=== PATIENT | female | born 1965 | race Caucasian/White ===

== ENCOUNTER 2025-01-11 08:18 | Inpatient (IN) | payer OTHER ==
[~2025-01-11] VITALS: Ht 175.3 cm; Wt 63.5 kg
[2025-01-11] MEDS ORDERED: VANCOMYCIN 1GM/200ML PM 200 ML IV ONE (08:45)
--- NOTE | 2025-01-11 08:47 | ECG ---
[facility] Test Date: 2025-01-11 Test Time: 08:29:44 Pat Name: TANISHA OLIVARES Department: Room: 0249 Gender: F Business System Manager: : 1965 Requested By: CAROLINE XIE Order Number: [id number] Reading MD: Arron Gonzales Measurements Intervals [place] Rate: 106 P: 80 [place]: 133 QRS: 73 QRSD: 93 T: 65 QT: 377 QTc: 501 Interpretive Statements Sinus tachycardia Anterior infarct, age indeterminate Electronically Signed On 01-12-2025 22:59:45 PDT by Arron Gonzales Please click the below link to view image of tracing.
--- NOTE | 2025-01-11 08:56 | ED.PDOC ---
GI ASSESSMENT HPI Comments 59 y/o F, BIBA, with PMHx of cancer presents to the ED for CC of n ausea/vomiting. EMS reports, patient is coming from home where she c/o hematemesis onset, today (01/11/25). Patient relays, she has x2 episodes of "bright red" emesis. Patient comments, that she was seen at [facility] for SS in November 2024 and was transferred to [facility] d/t vulvar cancer; patient was released from [facility] x1week ago following colectomy. Patient has colostomy in place and denies any changes in stool. Patient denies blood in stool, fatigue, weakness, dizziness, chills, or headache. No other symptoms or modifying factors present at this time. Chief Complaint: Nausea/Vomiting Time Seen by MD: 08:50 Reviewed Notes: Nurses Notes, Fruit I Farmworker Notes, Medications, Allergies Allergies: Coded Allergies: NO KNOWN ALLERGIES (Unverified , 01/11/25) Information Source: Patient, Emergency Med Personnel Mode of Arrival: EMS Timing: Days Duration: Since onset Prehospital treatment: None Quality: None Vomitus: Bright Red Bood Stool: Normal Severity: Moderate Recent: None Recent Hx of: None Pain Location: None Modifying Factors: Lying still Associated sign and symptoms: Hematemesis Past Medical History PAST MEDICAL HISTORY: Cancer Surgical History (Other): colostomy PHARMACY SERVICE ASSOCIATE History: Denies all PHARMACY SERVICE ASSOCIATE Hx Family History Family History: Unknown Social History Smoker: Non-Smoker Alcohol: Denies ETOH Use Drugs: Denies Drug Use Lives In: Home Constitutional: denies: chills, diaphoresis, fatigue, fever, malaise, sweats, weakness, others EENTM: denies: blurred vision, double vision, ear bleeding, ear discharge, ear drainage, ear pain, ear ringing, eye pain, eye redness, hearing loss, mouth pain, mouth swelling, nasal discharge, nose bleeding, nose congestion, nose pain, photophobia, tearing, throat pain, throat swelling, voice changes, others Respiratory: denies: cough, hemoptysis, orthopnea, SOB at rest, shortness of breath, SOB with excertion, stridor, wheezing, others Cardiovascular: denies: chest pain, dizzy spells, diaphoresis, Dyspnea on exertion, edema, irregular heart beat, left arm pain, lightheadedness, palpitations, PND, syncope, others Gastrointestinal: reports: hematemesis; denies: abdomen distended, abdominal pain, blood streaked bowels, constipated, diarrhea, dysphagia, difficulty swallowing, melena, nausea, poor appetite, poor fluid intake, rectal bleeding, rectal pain, vomiting, others Genitourinary: denies: abnormal vagina bleeding, burning, dyspareunia, dysuria, flank pain, frequency, hematuria, incontinence, pain, , vagina discharge, urgency, others Neurological: denies: dizziness, fainting, headache, left sided numbness, left sided weakness, numbness, paresthesia, pre-existing deficit, right sided numbness, right sided weakness, seizure, speech problems, tingling, tremors, weakness, others Musculoskeletal: denies: back pain, gout, joint pain, joint swelling, muscle pain, muscle stiffness, neck pain, others Integumetry: denies: bruises, change in color, change in hair/nails, dryness, laceration, lesions, lumps, rash, wounds, others Allergic/Immunocompromised: denies: Difficulty Healing, Frequent Infections, Hives, Itching, others Hematologic/Lymphatic: denies: anemia, blood clots, easy bleeding, easy bruising, swollen glands, others Endocrine: denies: excessive hunger, excessive sweating, excessive thirst, excessive urination, flushing, intolerance to cold, intolerance to heat, unexplained weight gain, unexplained weight loss, others Psychiatric: denies: anxiety, bipolar disorder, depression, hopeless, panic disorder, schizophrenia, sleepless, suicidal, others All Other Systems: Reviewed and Negative Physical Exam General Appearance: Moderate Distress HEENT: Normal ENT Inspection, Pharynx Normal, TMs Normal Neck: Full Range of Motion, Non-Tender, Normal, Normal Inspection Respiratory: Chest Non-Tender, Lungs Clear, No Accessory Muscle Use, No Respiratory Distress, Normal Breath Sounds Cardiovascular: No Edema, No JVD, No Murmur, No Gallop, Normal Peripheral Pulses, Regular Rate/Rhythm Breast Exam: Deferred Gastrointestinal: Other (Colostomy) Genitalia: Deferred Pelvic: Deferred Rectal: Deferred Extremities: Decreased range of motion (Bilateral lower extremity) Musculoskeletal : Apperance: Normal Neurologic: Alert, No Motor Deficits, No Sensory Deficits Cerebellar Function: NOT DONE Reflexes: NOT DONE Skin: Pallor Peripheral Pulses: 3+ Radial (R), 3+ Radial (L) Lymphatic: No Adenopathy Was a procedure done? Was a procedure done?: No GI differential Dx Differential Diagnosis: Constipation, Diverticular disease, Esophagitis, Gastritis/PUD, Gastroenteritis, GI hemorrhage X-Ray, Labs, Meds, VS Vital Signs Date Time Temp Pulse Resp B/P (MAP) Pulse Ox O2 Delivery O2 Flow Rate FiO2 01/11/25 14:00 70 16 123/63 (83) 95 01/11/25 12:00 97.9 71 16 138/68 (91) 95 97.9 01/11/25 10:31 92 20 95 Room Air* 0 21 01/11/25 10:30 95 Room Air* 0 21 01/11/25 10:00 83 16 131/83 (99) 95 01/11/25 08:50 97.8 98 16 132/80 (97) 95 97.8 01/11/25 08:29 106 01/11/25 08:22 98.3 110 16 138/84 97 98.3 Lab Test 01/11/25 10:00 01/11/25 08:54 Range/Units Urine Color Light-brown Yellow Urine Clarity Ex.turbid Clear Urine pH 5.5 5.0-9.0 Urine Specific [place] 1.019 1.001-1.035 Urine Protein 2+ H Negative Urine Ketones Negative Negative Urine Blood 2+ H Negative /uL Urine Nitrite Negative Negative Urine Bilirubin Negative Negative Urine Urobilinogen Normal Negative mg/dL Urine Leukocyte Esterase 3+ Negative /uL Urine RBC 76 0 - 4 /hpf Urine WBC Clumps Present None Seen /hpf Urine Microscopic WBC 502 H 0-5 /HPF Urine Squamous Epithelial Cells Few <5 /hpf Urine Bacteria Few H None Seen /hpf Urine Mucus Few None Seen Urine Glucose Normal Normal mg/dL White Blood Count 9.2 4.4-10.8 10^3/uL Red Blood Count 3.68 L 4.0-5.20 10^6/uL Hemoglobin 11.1 L 12.2-16.2 g/dL Hematocrit 34.1 L 36.0-46.0 % Mean Corpuscular Volume 92.7 80.0-100.0 fL Mean Corpuscular Hemoglobin 30.3 28.0-32.0 pg Mean Corpuscular Hemoglobin Concent 32.7 32.0-36.0 g/dL Red Cell Distribution Width 16.9 H 11.8-14.3 % Platelet Count 393 140-450 10^3/uL Mean Platelet Volume 7.1 6.9-10.8 fL Neutrophils (%) (Auto) 89.3 H 37.0-80.0 % Lymphocytes (%) (Auto) 4.5 L 10.0-50.0 % Monocytes (%) (Auto) 5.3 0.0-12.0 % Eosinophils (%) (Auto) 0.6 0.0-7.0 % Basophils (%) (Auto) 0.3 0.0-2.0 % Neutrophils # (Auto) 8.3 1.6-8.6 10 ^3/uL Lymphocytes # (Auto) 0.4 0.4-5.4 10 ^3/uL Monocytes # (Auto) 0.5 0-1.3 10 ^3/uL Eosinophils # (Auto) 0.1 0-0.8 10 ^3/uL Basophils # (Auto) 0 0-0.2 10 ^3/uL Nucleated Red Blood Cells 0.0 % Prothrombin Time 10.9 9.3-11.8 sec Prothrombin Time INR 1.03 0.9-1.15 Activated Partial Thromboplast Time 24.0 L 24.5-34.5 SEC Sodium Level 144 136-145 mmol/L Potassium Level 4.3 3.5-5.1 mmol/L Chloride Level 103 98-107 mmol/L Carbon Dioxide Level 30 20-31 mmol/L Anion Gap 11 5-15 Blood Urea Nitrogen 25 H 9-23 mg/dL Creatinine 1.13 H 0.550-1.02 mg/dL Glomerular Filtration Rate Calc 56 >90 mL/min BUN/Creatinine Ratio 22.1 H 10.0-20.0 Serum Glucose 142 H 74-106 mg/dL Lactic Acid Level 1.6 0.4-2.0 mmol/L Calcium Level 11.0 H 8.7-10.4 mg/dL Total Bilirubin 0.3 0.2-1.0 mg/dL Aspartate Amino Transferase (AST) 19 13-40 U/L Alanine Aminotransferase (ALT) 17 7-40 U/L Alkaline Phosphatase 76 46-116 U/L Total Protein 7.5 5.7-8.2 g/dL Albumin 4.7 3.2-4.8 g/dL Current Medications Medications (Trade) Dose Ordered Sig/Primitivo Route Start Time Stop Time Status Last Admin Sodium Chloride 1,000 ml @ 1,000 mls/hr Q1H ONCE IV 01/11/25 08:45 01/11/25 09:44 DC 01/11/25 09:47 Sodium Chloride 1,000 ml @ 150 mls/hr Q6H40M ONCE IV 01/11/25 08:45 01/11/25 15:24 DC 01/11/25 09:48 Vancomycin HCl 250 ml @ 166.667 mls/hr ONCE ONCE IV 01/11/25 09:00 01/11/25 10:29 DC 01/11/25 09:47 Cefepime HCl 50 ml @ 50 mls/hr ONCE ONCE IV 01/11/25 10:00 01/11/25 10:59 DC 01/11/25 09:47 Ondansetron HCl (Zofran) 4 mg ONCE ONCE IV 01/11/25 11:45 01/11/25 11:46 DC 01/11/25 11:58 [place] [address] Ph: [phone] DIAGNOSTIC IMAGING Diagnostic Imaging Report : [id number] Signed PATIENT: TANISHA OLIVARES ACCT: [id number] UNIT: [id number] : 1965 LOC: ER ROOM / BED: / AGE / SEX: 59 / F ADM STATUS: REG ER SERVICE 0842 ORDERING PHYSICIAN: CAROLINE XIE MD PROCEDURE(s): CXRP - CHEST PORTABLE REASON: sob ORDER NUMBER(s): [id number], ACCESSION NUMBER(s): [id number] CHEST RADIOGRAPH Indication: sob Technique: Single frontal view of the chest was obtained COMPARISON: None FINDINGS: Lines and Tubes: None Lungs: Clear Pleura: No effusion. No pneumothorax. Cardiomediastinal contours: Unremarkable Bones: Unremarkable IMPRESSION: 1. No acute disease. ATED BY: ADOLFO CANNON MD DICTATED DATE/TIME: 01/11/25 1000 SIGNED BY: ADOLFO CANNON MD SIGNED DATE/TIME: 01/11/25 1000 CC: Patient alert. Complaining of vomiting blood. Chronic condition. Vitals stable. Chest x-ray reviewed does not show any acute process. She has not been ambulating. Pale in color. Colostomy bag in place. She has urostomy bag. She will need placement. Prior to placement she will need GI consultation. Stable in the ER. Explained to the patient. Continue to monitor. Time of 1ST Reevaluation: 09:20 Reevaluation 1ST: Unchanged Patient Education/Counseling: Diagnosis, Treatment Family Education/Counseling: No Family Present SEPSIS Sepsis Screen Date sepsis recognized/suspect: Jan 11, 2025 Time Sepsis recognized/suspect: 821 Recent Procedure: No On Antibiotic Therapy: No Respiratory Rate >20: No Heart Rate >90: Yes Temp<36 C (96.8 F) or >38.3 C: No SBP <90 or MAP <65 mmHG: No New Acute Mental Status Change: No Is the patient on CPAP, BIPAP,: No Physician Orders Chest Portable (01/11/25 08:42) Accucheck (01/11/25 08:42) Blood Culture (01/11/25 08:42) Cefepime 1gm/ 50ml (Maxipime 1gm/50ml) (01/11/25 22:00) Notify Md If Map <65 Or Bp<90 (01/11/25 08:42) If Map<65 Start Vasopressor (01/11/25 08:42) Sepsis Reassesment After Fluid (01/11/25 09:42) * Wound Consult (01/11/25 ) Vital Signs Date Time Temp Pulse Resp B/P (MAP) Pulse Ox O2 Delivery O2 Flow Rate FiO2 01/11/25 14:00 70 16 123/63 (83) 95 01/11/25 12:00 97.9 71 16 138/68 (91) 95 97.9 01/11/25 10:31 92 20 95 Room Air* 0 21 01/11/25 10:30 95 Room Air* 0 21 01/11/25 10:00 83 16 131/83 (99) 95 01/11/25 08:50 97.8 98 16 132/80 (97) 95 97.8 01/11/25 08:29 106 01/11/25 08:22 98.3 110 16 138/84 97 98.3 Laboratory Tests Test 01/11/25 08:54 Lactic Acid Level 1.6 mmol/L (0.4-2.0) White Blood Count 9.2 10^3/uL (4.4-10.8) Medications Medications Dose Ordered Sig/Primitivo Route Start Time Stop Time Status Last Admin Dose Admin Cefepime HCl 50 ml @ 50 mls/hr ONCE ONCE IV 01/11/25 10:00 01/11/25 10:59 DC 01/11/25 09:47 Ondansetron HCl 4 mg ONCE ONCE IV 01/11/25 11:45 01/11/25 11:46 DC 01/11/25 11:58 Sodium Chloride 1,000 ml @ 150 mls/hr Q6H40M ONCE IV 01/11/25 08:45 01/11/25 15:24 DC 01/11/25 09:48 Sodium Chloride 1,000 ml @ 1,000 mls/hr Q1H ONCE IV 01/11/25 08:45 01/11/25 09:44 DC 01/11/25 09:47 Vancomycin HCl 250 ml @ 166.667 mls/hr ONCE ONCE IV 01/11/25 09:00 01/11/25 10:29 DC 01/11/25 09:47 Departure 1 Departure Time of Disposition: 12:57 Impression: Primary Impression: Failure to thrive Qualified Codes: R62.7 - Adult failure to thrive Additional Impression: GI bleed Qualified Codes: K92.2 - Gastrointestinal hemorrhage, unspecified Disposition: ADMITTED INPATIENT Admit to: Med Surg Condition: Guarded Critical Care Note Critical Care Time?: Yes (90 min-critical care time only) Critical care comment: Continue to monitor Stability Stability form required: No Heart Score Heart Score: Heart Score Response (Comments) Value History N/A 0 EKG N/A 0 Age N/A 0 Risk Factors N/A 0 Troponin N/A 0 Total 0 I personally scribed for CAROLINE XIE MD ([email or web address]) on 01/11/25 at 08:56. Electronically submitted by Dina Mahan [email or web address]). I personally scribed for CAROLINE XIE MD ([email or web address]) on 01/11/25 at 09:05. Electronically submitted by Dina Mahan ([email or web address]). I personally scribed for CAROLINE XIE MD ([email or web address]) on 01/11/25 at 11:28. Electronically submitted by Dina Mahan [email or web address]). CAROLINE XIE MD Jan 11, 2025 08:56
[2025-01-11 09:17] LABS: Hematocrit 34.1 % (36.0-46.0); Hemoglobin 11.1 g/dL (12.2-16.2); Mean Corpuscular Hemoglobin 30.3 pg (28.0-32.0); Mean Corpuscular Volume 92.7 fL (80.0-100.0); Nucleated Red Blood Cells % 0.0 %
[2025-01-11 09:34] LABS: Alanine Aminotransferase 17 U/L (7-40); Albumin 4.7 g/dL (3.2-4.8); Alkaline Phosphatase 76 U/L (46-116); Anion Gap 11 (5-15); BUN/Creatinine Ratio 22.1 (10.0-20.0); Carbon Dioxide 30 mmol/L (20-31); Chloride 103 mmol/L (98-107); Potassium 4.3 mmol/L (3.5-5.1); Sodium 144 mmol/L (136-145); Total Protein 7.5 g/dL (5.7-8.2)
[2025-01-11 09:42] LABS: Bilirubin, Total 0.3 mg/dL (0.2-1.0); Blood Urea Nitrogen 25 mg/dL (9-23); Calcium 11.0 mg/dL (8.7-10.4); Glucose 142 mg/dL (74-106); INR 1.03 (0.9-1.15); Partial Thromboplastin Time 24.0 SEC (24.5-34.5); Prothrombin Time 10.9 sec (9.3-11.8)
[2025-01-11] MEDS: SODIUM CHLORIDE 0.9% 1,000 ML IV ONE ×3 (09:47→15:22)
[2025-01-11] MEDS: VANCOMYCIN 1GM/250ML KIT 250 ML IV ONE (09:47)
[2025-01-11] MEDS: CEFEPIME 1GM/ 50ML 50 ML IV ONE (09:47)
--- NOTE | 2025-01-11 10:02 | DVH ---
CHEST RADIOGRAPH Indication: sob Technique: Single frontal view of the chest was obtained COMPARISON: None FINDINGS: Lines and Tubes: None Lungs: Clear Pleura: No effusion. No pneumothorax. Cardiomediastinal contours: Unremarkable Bones: Unremarkable IMPRESSION: 1. No acute disease.
[2025-01-11 10:31] VITALS: PULSE 92; RESP 20; O2SAT 95
[2025-01-11 10:37] LABS: Urine Protein, UAD 2+ (Negative); Urine WBC Clumps PRESENT /hpf (None Seen)
[2025-01-11] MEDS: ONDANSETRON HCL 4 MG/2 ML VIAL IV ONE (11:58)
[2025-01-11] MEDS ORDERED: ONDANSETRON HCL 4 MG/2 ML VIAL IV PRN (15:15)
[2025-01-11] MEDS: METOCLOPRAMIDE HCL 5MG/ml INJ 2ml VIAL IV PRN (15:26)
[2025-01-11] MEDS: MORPHINE SULFATE INJ 2 MG/ml SYRG IV PRN ×2 (15:27→22:48)
[2025-01-11 18:10] VITALS: PULSE 66; RESP 16; O2SAT 95
--- NOTE | 2025-01-11 18:16 | DVHINCON2 ---
Date of service: Jan 11, [address] Hamilton Reason for Consultation UGI bleed History of Present Illness 59 y/o F, BIBA, with PMHx of cancer presents to the ED for CC of nausea/vomiting. EMS reports, patient is coming from home where she c/o hematemesis onset, today (01/11/25). Patient relays, she has x2 episodes of "bright red" emesis. Patient comments, that she was seen at [facility] for SS in November [address] to [facility] d/t vulvar cancer; patient was released from [facility] ago following colectomy. Patient has colostomy in place and denies any changes in stool. Patient denies blood in stool, fatigue, weakness, dizziness, chills, or headache. No other symptoms or modifying factors present at this time. Past Medical History Past Medical History PAST MEDICAL HISTORY: Vulvar Cancer Past Surgical History Surgical History (Other): colostomy Allergies: Coded Allergies: NO KNOWN ALLERGIES (Unverified , 01/11/25) Current Medications Current Medications Medications (Trade) Dose Ordered Sig/Primitivo Route PRN Reason Start Time Stop Time Status Last Admin Cefepime HCl 50 ml @ 12.5 mls/hr Q12HR IV 01/11/25 22:00 Metoclopramide HCl (Reglan Injection) 10 mg Q4HP PRN IV NAUSEA / VOMITING 01/11/25 15:15 01/11/25 15:26 Acetaminophen (Tylenol Tablet) 650 mg Q6HR PO 01/11/25 18:00 Ondansetron HCl (Zofran) 4 mg Q4HP PRN IV NAUSEA / VOMITING 01/11/25 15:15 Hold Morphine Sulfate 2 mg Q4HPRN PRN IV SEVERE PAIN (7-10 PAIN SCALE) 01/11/25 15:15 01/11/25 15:27 Vital Signs Vital Signs Date Time Temp Pulse Resp B/P (MAP) Pulse Ox O2 Delivery O2 Flow Rate FiO2 01/11/25 16:00 98.3 66 16 140/71 (94) 95 98.3 01/11/25 10:31 Room Air* 0 21 Physical Exam Hemodynamically stable, full physical examination deferred Colostomy in place Labs/Diagnostic Data Labs Test 01/11/25 10:00 01/11/25 08:54 Range/Units Urine Color Light-brown Yellow Urine Clarity Ex.turbid Clear Urine pH 5.5 5.0-9.0 Urine Specific [place] 1.019 1.001-1.035 Urine Protein 2+ H Negative Urine Ketones Negative Negative Urine Blood 2+ H Negative /uL Urine Nitrite Negative Negative Urine Bilirubin Negative Negative Urine Urobilinogen Normal Negative mg/dL Urine Leukocyte Esterase 3+ Negative /uL Urine RBC 76 0 - 4 /hpf Urine WBC Clumps Present None Seen /hpf Urine Microscopic WBC 502 H 0-5 /HPF Urine Squamous Epithelial Cells Few <5 /hpf Urine Bacteria Few H None Seen /hpf Urine Mucus Few None Seen Urine Glucose Normal Normal mg/dL White Blood Count 9.2 4.4-10.8 10^3/uL Red Blood Count 3.68 L 4.0-5.20 10^6/uL Hemoglobin 11.1 L 12.2-16.2 g/dL Hematocrit 34.1 L 36.0-46.0 % Mean Corpuscular Volume 92.7 80.0-100.0 fL Mean Corpuscular Hemoglobin 30.3 28.0-32.0 pg Mean Corpuscular Hemoglobin Concent 32.7 32.0-36.0 g/dL Red Cell Distribution Width 16.9 H 11.8-14.3 % Platelet Count 393 140-450 10^3/uL Mean Platelet Volume 7.1 6.9-10.8 fL Neutrophils (%) (Auto) 89.3 H 37.0-80.0 % Lymphocytes (%) (Auto) 4.5 L 10.0-50.0 % Monocytes (%) (Auto) 5.3 0.0-12.0 % Eosinophils (%) (Auto) 0.6 0.0-7.0 % Basophils (%) (Auto) 0.3 0.0-2.0 % Neutrophils # (Auto) 8.3 1.6-8.6 10 ^3/uL Lymphocytes # (Auto) 0.4 0.4-5.4 10 ^3/uL Monocytes # (Auto) 0.5 0-1.3 10 ^3/uL Eosinophils # (Auto) 0.1 0-0.8 10 ^3/uL Basophils # (Auto) 0 0-0.2 10 ^3/uL Nucleated Red Blood Cells 0.0 % Prothrombin Time 10.9 9.3-11.8 sec Prothrombin Time INR 1.03 0.9-1.15 Activated Partial Thromboplast Time 24.0 L 24.5-34.5 SEC Sodium Level 144 136-145 mmol/L Potassium Level 4.3 3.5-5.1 mmol/L Chloride Level 103 98-107 mmol/L Carbon Dioxide Level 30 20-31 mmol/L Anion Gap 11 5-15 Blood Urea Nitrogen 25 H 9-23 mg/dL Creatinine 1.13 H 0.550-1.02 mg/dL Glomerular Filtration Rate Calc 56 >90 mL/min BUN/Creatinine Ratio 22.1 H 10.0-20.0 Serum Glucose 142 H 74-106 mg/dL Lactic Acid Level 1.6 0.4-2.0 mmol/L Calcium Level 11.0 H 8.7-10.4 mg/dL Total Bilirubin 0.3 0.2-1.0 mg/dL Aspartate Amino Transferase (AST) 19 13-40 U/L Alanine Aminotransferase (ALT) 17 7-40 U/L Alkaline Phosphatase 76 46-116 U/L Total Protein 7.5 5.7-8.2 g/dL Albumin 4.7 3.2-4.8 g/dL Problems(with codes): (1) Hypercalcemia (2) S/P colostomy (3) Vulvar cancer (4) GI bleed (5) Failure to thrive (6) Nausea & vomiting Plan/Recommendation Plan NPO except for ice chips and water IV Protonix 40 mg q.12 hours Hold any blood thinners Monitor serial H&H Correct hypercalcemia IV fluid hydration Patient is started on IV antibiotics Patient will be re-evaluate in the next 24-48 hours for a possible endoscopy pending clinical picture and progress Plan discussed with: Other (None) OSCAR HOOKS MD Jan 11, 2025 18:15
[2025-01-11] MEDS: cefTRIAXone 1GM/50ML D5W 50 ML IV ONE (18:30)
--- NOTE | 2025-01-11 18:30 | DVHHPRES ---
History of Present Illness Resident Creating Document: ASHLIEKUSUMKESHA KAPOORJOSE RESDIENT History of Present Illness This is a 59-year-old female with past medical history of valvular cancer (status post radiotherapy and chemotherapy), came to the hospital due to blood in vomit. Per patient today, she developed 2 times bloody vomit with bright red content. She also reports of generalized weakness, and fatigue. Patient has been diagnosed with a follow up with the Cancer 1 year back, underwent radiotherapy, and chemotherapy (lady decision was 6 week back and due to patient intolerance it was stopped). Per patient, she follows at [facility] with Hematology/Oncology, due to high stage of cancers, surgery was not recommended. Patient was recently discharged from [facility], had underwent colostomy, bilateral nephrostomy and suprapubic catheterization. She denies fever, chest pain, shortness of breath, or any recent sick contact. Previous hospitalization: Recently discharged from [facility] PMHx: Valvular cancer status post radiotherapy and chemotherapy PSHx: No significant Family history: Nonsignificant Social history: Ex-smoker with 26 pack year history Home medication: Albuterol, amlodipine Allergic history: No known allergy Patient seen and examined at the bedside. Patient is still complaining of generalized weakness and fatigue. Review of Systems Allergies: Coded Allergies: NO KNOWN ALLERGIES (Unverified , 01/11/25) Medications Current Medications Medications Dose Ordered Sig/Primitivo Route Start Time Stop Time Status Last Admin Dose Admin Cefepime HCl 50 ml @ 12.5 mls/hr Q12HR IV 01/11/25 22:00 Metoclopramide HCl 10 mg Q4HP PRN IV 01/11/25 15:15 01/11/25 15:26 10 MG Acetaminophen 650 mg Q6HR PO 01/11/25 18:00 Ondansetron HCl 4 mg Q4HP PRN IV 01/11/25 15:15 Hold Morphine Sulfate 2 mg Q4HPRN PRN IV 01/11/25 15:15 01/11/25 15:27 2 MG Pantoprazole Sodium 40 mg BID IV 01/11/25 22:00 UNV Exam Vital Signs Vital Signs Date Time Temp Pulse Resp B/P (MAP) Pulse Ox O2 Delivery O2 Flow Rate FiO2 01/11/25 16:00 98.3 66 16 140/71 (94) 95 98.3 01/11/25 10:31 Room Air* 0 21 Exam General Appearance: Alert, Oriented X3, Cooperative, No acute distress HEENT: Atraumatic, PERRLA, EOMI, Mucous membrane moist/pink Respiratory: Clear to auscultation, Normal air movement Cardiovascular: Regular rate, Normal S1, Normal S2, No murmurs, no chest wall tenderness Abdominal: Normal bowel sounds, Soft, No tenderness, No hepatospenomegaly, No masses Extremities: No clubbing, No cyanosis, No edema, Normal pulses, No tenderness/swelling Skin: Valvular cancer with localized spread, could not evaluate completely due to patient's discomfort Neuro: Normal gait, Normal speech, Strength at 5/5 X4 ext, Normal tone, Sensation intact, Cranial nerves 3-12 NL, Reflexes 2+ Psych/Mental Status: Mental status NL, Mood NL Labs/Xrays Labs Test 01/11/25 10:00 01/11/25 08:54 Range/Units Urine Color Light-brown Yellow Urine Clarity Ex.turbid Clear Urine pH 5.5 5.0-9.0 Urine Specific [place] 1.019 1.001-1.035 Urine Protein 2+ H Negative Urine Ketones Negative Negative Urine Blood 2+ H Negative /uL Urine Nitrite Negative Negative Urine Bilirubin Negative Negative Urine Urobilinogen Normal Negative mg/dL Urine Leukocyte Esterase 3+ Negative /uL Urine RBC 76 0 - 4 /hpf Urine WBC Clumps Present None Seen /hpf Urine Microscopic WBC 502 H 0-5 /HPF Urine Squamous Epithelial Cells Few <5 /hpf Urine Bacteria Few H None Seen /hpf Urine Mucus Few None Seen Urine Glucose Normal Normal mg/dL White Blood Count 9.2 4.4-10.8 10^3/uL Red Blood Count 3.68 L 4.0-5.20 10^6/uL Hemoglobin 11.1 L 12.2-16.2 g/dL Hematocrit 34.1 L 36.0-46.0 % Mean Corpuscular Volume 92.7 80.0-100.0 fL Mean Corpuscular Hemoglobin 30.3 28.0-32.0 pg Mean Corpuscular Hemoglobin Concent 32.7 32.0-36.0 g/dL Red Cell Distribution Width 16.9 H 11.8-14.3 % Platelet Count 393 140-450 10^3/uL Mean Platelet Volume 7.1 6.9-10.8 fL Neutrophils (%) (Auto) 89.3 H 37.0-80.0 % Lymphocytes (%) (Auto) 4.5 L 10.0-50.0 % Monocytes (%) (Auto) 5.3 0.0-12.0 % Eosinophils (%) (Auto) 0.6 0.0-7.0 % Basophils (%) (Auto) 0.3 0.0-2.0 % Neutrophils # (Auto) 8.3 1.6-8.6 10 ^3/uL Lymphocytes # (Auto) 0.4 0.4-5.4 10 ^3/uL Monocytes # (Auto) 0.5 0-1.3 10 ^3/uL Eosinophils # (Auto) 0.1 0-0.8 10 ^3/uL Basophils # (Auto) 0 0-0.2 10 ^3/uL Nucleated Red Blood Cells 0.0 % Prothrombin Time 10.9 9.3-11.8 sec Prothrombin Time INR 1.03 0.9-1.15 Activated Partial Thromboplast Time 24.0 L 24.5-34.5 SEC Sodium Level 144 136-145 mmol/L Potassium Level 4.3 3.5-5.1 mmol/L Chloride Level 103 98-107 mmol/L Carbon Dioxide Level 30 20-31 mmol/L Anion Gap 11 5-15 Blood Urea Nitrogen 25 H 9-23 mg/dL Creatinine 1.13 H 0.550-1.02 mg/dL Glomerular Filtration Rate Calc 56 >90 mL/min BUN/Creatinine Ratio 22.1 H 10.0-20.0 Serum Glucose 142 H 74-106 mg/dL Lactic Acid Level 1.6 0.4-2.0 mmol/L Calcium Level 11.0 H 8.7-10.4 mg/dL Total Bilirubin 0.3 0.2-1.0 mg/dL Aspartate Amino Transferase (AST) 19 13-40 U/L Alanine Aminotransferase (ALT) 17 7-40 U/L Alkaline Phosphatase 76 46-116 U/L Total Protein 7.5 5.7-8.2 g/dL Albumin 4.7 3.2-4.8 g/dL SEPSIS Sepsis Screen Date sepsis recognized/suspect: Jan 11, 2025 Time Sepsis recognized/suspect: 844 Recent Procedure: No On Antibiotic Therapy: Yes Respiratory Rate >20: Yes Heart Rate >90: Yes Temp<36 C (96.8 F) or >38.3 C: No SBP <90 or MAP <65 mmHG: No New Acute Mental Status Change: No Is the patient on CPAP, BIPAP,: No Physician Orders * Wound Consult (01/11/25 ) Admit (01/11/25 15:10) Code Status (01/11/25 15:10) Vital Signs .PER UNIT PROTOCOL (01/11/25 15:10) Review Orders With Adm.Md (01/11/25 15:10) Metoclopramide Injection (Reglan Injecti (01/11/25 15:15) Acetaminophen Tablet (Tylenol Tablet) (01/11/25 18:00) Notify Md Of Changes From Base (01/11/25 15:10) Advance Directive (01/11/25 15:10) Urine Bacterial Culture (01/11/25 15:10) Patient Condition (01/11/25 15:10) Allergies (01/11/25 15:10) Ondansetron Hcl (Zofran) (01/11/25 15:15) Oxygen By Nasal Cannula (01/11/25 15:10) Stat Ekg For Chest Pain (01/11/25 15:10) Complete Blood Count (01/12/25 04:00) Comprehensive Metabolic Panel (01/12/25 04:00) Regular Diet (01/11/25 Dinner) * Urology Consult (01/11/25 15:10) * [facility] Client Technical Support Associate (01/11/25 15:10) Sodium Chloride 0.9% (01/11/25 15:15) Morphine Sulfate Injection (01/11/25 15:15) Pantoprazole (Protonix) (01/11/25 22:00) Vital Signs Date Time Temp Pulse Resp B/P (MAP) Pulse Ox O2 Delivery O2 Flow Rate FiO2 01/11/25 16:00 98.3 66 16 140/71 (94) 95 98.3 01/11/25 15:57 69 16 140/71 01/11/25 15:27 67 17 128/79 01/11/25 14:00 70 16 123/63 (83) 95 01/11/25 12:00 97.9 71 16 138/68 (91) 95 97.9 01/11/25 10:31 92 20 95 Room Air* 0 21 01/11/25 10:30 95 Room Air* 0 21 Laboratory Tests Test 01/11/25 08:54 Lactic Acid Level 1.6 mmol/L (0.4-2.0) White Blood Count 9.2 10^3/uL (4.4-10.8) Medications Medications Dose Ordered Sig/Primitivo Route Start Time Stop Time Status Last Admin Dose Admin Cefepime HCl 50 ml @ 50 mls/hr ONCE ONCE IV 01/11/25 10:00 01/11/25 10:59 DC 01/11/25 09:47 50 MLS/HR Metoclopramide HCl 10 mg Q4HP PRN IV 01/11/25 15:15 01/11/25 15:26 10 MG Morphine Sulfate 2 mg Q4HPRN PRN IV 01/11/25 15:15 01/11/25 15:27 2 MG Ondansetron HCl 4 mg ONCE ONCE IV 01/11/25 11:45 01/11/25 11:46 DC 01/11/25 11:58 4 MG Sodium Chloride 1,000 ml @ 150 mls/hr Q6H40M ONCE IV 01/11/25 08:45 01/11/25 15:24 DC 01/11/25 09:48 150 MLS/HR Sodium Chloride 1,000 ml @ 150 mls/hr Q6H40M ONCE IV 01/11/25 15:15 01/11/25 21:54 01/11/25 15:22 150 MLS/HR Sodium Chloride 1,000 ml @ 1,000 mls/hr Q1H ONCE IV 01/11/25 08:45 01/11/25 09:44 DC 01/11/25 09:47 1,000 MLS/HR Vancomycin HCl 250 ml @ 166.667 mls/hr ONCE ONCE IV 01/11/25 09:00 01/11/25 10:29 DC 01/11/25 09:47 166.667 MLS/HR Assessment/Plan Assessment/Plan Bloody vomit, likely due to upper GI bleeding Valvular cancer, possibly metastatic status post radiotherapy and chemotherapy Status post colostomy Status post bilateral nephrostomy and suprapubic catheterization due to urinary incontinence Severe protein malnutrition Cachexia Possible UTI * UA shows leukocyte esterase 3+, RBC 26, WBC 502 Plan/recommendation * IV Protonix, consulted GI * Consulted Urology due to malfunctioning of suprapubic catheter * Empiric antibiotic Rocephin * Urine culture DIET: NPO DVT PROPHYLAXIS: SCDs GI PROPHYLAXIS:: Protonix 40 mg b.i.d. CODE STATUS: Goal of care discussed for more than 18 minutes, full code DISPOSITION: Med/surge Patient's status and plan discussed with the patient. Case discussed with Dr. Benitez. Plan discussed with: Patient, Other (RN) My Orders Orders - WALLACE CHANG RESDIENT Procedure Category Date Status Time Admit ADMIT 01/11/25 Transmitted 15:10 Code Status CODE 01/11/25 Transmitted 15:10 Vital Signs [place] 01/11/25 In Process 15:10 Review Orders With [facility] 01/11/25 In Process Adm. 15:10 Metoclopramide PHA 01/11/25 In Process Injection (Reglan 15:15 Acetaminophen Tablet PHA 01/11/25 In Process (Tylenol Tablet) 18:00 Notify Of Changes [place] 01/11/25 In Process From Base 15:10 Advance Directive [place] 01/11/25 In Process 15:10 Urine Bacterial MAICOL 01/11/25 In Process Culture 15:10 Patient Condition ORDERS 01/11/25 Transmitted 15:10 Allergies [place] 01/11/25 In Process 15:10 Ondansetron Hcl PHA 01/11/25 In Process (Zofran) 15:15 Oxygen By Nasal RT 01/11/25 Transmitted Cannula 15:10 Stat Ekg For Chest [place] 01/11/25 In Process Pain 15:10 Complete Blood Count LAB 01/12/25 Verified 04:00 Comprehensive LAB 01/12/25 Verified Metabolic Panel 04:00 Regular Diet DIET 01/11/25 Transmitted Dinner * Urology Consult CONS 01/11/25 Transmitted 15:10 * [facility] Client Technical Support Associate CONS 01/11/25 Transmitted 15:10 Sodium Chloride 0.9% PHA 01/11/25 In Process 15:15 Morphine Sulfate PHA 01/11/25 In Process Injection 15:15 Date of Service: Jan 11, 2025 Billing Provider: ALMA RITCHIE MD Common Visit Codes: [id number] INP/OBS CARE (HIGH) Secondary Visit Codes: [id number] CARE PLAN 30 MINUTES WALLACE CHANG RESDIENT Jan 11, 2025 18:30 ALMA RITCHIE MD Jan 12, 2025 01:08
[2025-01-11] MEDS: ACETAMINOPHEN 325 MG TAB PO SCH (18:31)
--- NOTE | 2025-01-11 19:37 | DVH ---
Exam: US BLADDER History: cancer, urinary retention Comparison: None Date: 01/11/2025 07:06 PM Technique: Grayscale ultrasound of the urinary bladder was obtained. A cinegraphic clip of the colla psed bladder and Tate catheter was also obtained. Findings: The urinary bladder is collapsed about a Tate catheter balloon and is not well evaluated. IMPRESSION: Bladder collapsed about a Tate catheter balloon. No evidence of urinary retention.
[2025-01-11 20:00] VITALS: PULSE 70; RESP 17; O2SAT 100
[2025-01-11 21:00] VITALS: BP 155/92; PULSE 70; RESP 17; TEMP 97.6; O2SAT 100
[2025-01-11] MEDS ORDERED: CEFEPIME 1GM/ 50ML 50 ML IV SCH (22:00)
[2025-01-11] MEDS: PANTOPRAZOLE 40 MG/10 ML VIAL INJ IV SCH (22:46)
[2025-01-12] VITALS (7 sets, daily range): BP systolic 132–159; BP diastolic 59–99; PULSE 78–104; RESP 16–20; TEMP 97.7–99.7; O2SAT 94–100
[2025-01-12 08:00] LABS: Hematocrit 32.0 % (36.0-46.0); Hemoglobin 10.2 g/dL (12.2-16.2); Mean Corpuscular Hemoglobin 30.3 pg (28.0-32.0); Mean Corpuscular Volume 94.7 fL (80.0-100.0); Nucleated Red Blood Cells % 0.0 %
[2025-01-12 08:11] LABS: Alanine Aminotransferase 11 U/L (7-40); Albumin 4.1 g/dL (3.2-4.8); Alkaline Phosphatase 62 U/L (46-116); Anion Gap 10 (5-15); BUN/Creatinine Ratio 24.5 (10.0-20.0); Calcium 10.1 mg/dL (8.7-10.4); Carbon Dioxide 26 mmol/L (20-31); Chloride 107 mmol/L (98-107); Potassium 4.2 mmol/L (3.5-5.1); Sodium 143 mmol/L (136-145); Total Protein 6.4 g/dL (5.7-8.2)
[2025-01-12 08:14] LABS: Bilirubin, Total 0.3 mg/dL (0.2-1.0); Blood Urea Nitrogen 26 mg/dL (9-23); Glucose 127 mg/dL (74-106)
[2025-01-12] MEDS: cefTRIAXone 1GM/50ML D5W 50 ML IV SCH (09:44)
[2025-01-12] MEDS: SODIUM CHLORIDE 0.9% 1,000 ML IV ONE (09:45)
--- NOTE | 2025-01-12 12:40 | DVHPN2 ---
Subjective Patient admitted with hematemesis No nausea or vomiting at this time Still having generalized weakness and fatigue Changes from previous H/P or p: No Changes Objective Vitals Vital Signs Date Time Temp Pulse Resp B/P (MAP) Pulse Ox O2 Delivery O2 Flow Rate FiO2 01/12/25 10:06 70 18 134/79 01/12/25 08:00 100 Nasal Cannula* 3 32 01/12/25 05:11 97.7 97.7 Intake/Output Intake and Output 01/12/25 07:00 Intake Total 2300 ml Output Total 650 ml Balance 1650 ml Intake IV Total 2300 ml Output Urine Total 650 ml General Appearance: Alert, Oriented X3, Cooperative, No acute distress, mild distress, moderate distress, severe distress, Other Lungs: Clear to auscultation, Normal air movement, Other Cardiovascular: Regular rate, Normal S1, Normal S2, No murmurs, Gallops, Rubs, Other Abdomen: Normal bowel sounds, Soft, No tenderness, No hepatospenomegaly, No masses, Other Medications Current Medications Medications Dose Ordered Sig/Primitivo Route Start Time Stop Time Status Last Admin Dose Admin Metoclopramide HCl 10 mg Q4HP PRN IV 01/11/25 15:15 01/12/25 10:06 10 MG Acetaminophen 650 mg Q6HR PO 01/11/25 18:00 01/11/25 18:31 650 MG Ondansetron HCl 4 mg Q4HP PRN IV 01/11/25 15:15 Hold Pantoprazole Sodium 40 mg BID IV 01/11/25 22:00 01/12/25 10:06 40 MG Morphine Sulfate 1 mg Q4HPRN PRN IV 01/11/25 18:30 01/12/25 09:36 1 MG Ceftriaxone Sodium 50 ml @ 100 mls/hr DAILY@09 IV 01/12/25 09:00 01/12/25 09:44 100 MLS/HR Ketorolac Tromethamine 15 mg Q6HPRN PRN IV 01/12/25 18:00 01/17/25 09:30 Laboratory Results Laboratory Tests 01/12/25 07:15 Chemistry Test 01/12/25 07:15 Albumin 4.1 g/dL (3.2-4.8) Calcium Level 10.1 mg/dL (8.7-10.4) Total Protein 6.4 g/dL (5.7-8.2) LFT Test 01/12/25 07:15 Alanine Aminotransferase (ALT) 11 U/L (7-40) Alkaline Phosphatase 62 U/L (46-116) Aspartate Amino Transferase (AST) 16 U/L (13-40) Total Bilirubin 0.3 mg/dL (0.2-1.0) Urinalysis Test 01/11/25 10:00 Urine Color Light-brown (Yellow) Urine Clarity Ex.turbid (Clear) Urine pH 5.5 (5.0-9.0) Urine Specific [place] 1.019 (1.001-1.035) Urine Protein 2+ (Negative) H Urine Ketones Negative (Negative) Urine Blood 2+ /uL (Negative) H Urine Nitrite Negative (Negative) Urine Bilirubin Negative (Negative) Urine Urobilinogen Normal mg/dL (Negative) Urine Leukocyte Esterase 3+ /uL (Negative) Urine RBC 76 /hpf (0 - 4) Urine WBC Clumps Present /hpf (None Seen) Urine Microscopic WBC 502 /HPF (0-5) H Urine Squamous Epithelial Cells Few /hpf (<5) Urine Bacteria Few /hpf (None Seen) H Urine Mucus Few (None Seen) Urine Glucose Normal mg/dL (Normal) Microbiology Microbiology Date/Time Source Procedure Growth Status 01/12/25 03:20 Nose MRSA Screen - Final Complete 01/11/25 10:00 Voided Urine Urine Culture - Preliminary Resulted 01/11/25 08:54 Blood Blood Culture - Preliminary NO GROWTH AFTER 24 HOURS OF INCUBATION. Resulted Labs and/or images reviewed: Labs reviewed by me, Image(s) reviewed by me Assessment/Plan Assessment/Plan Hypercalcemia Status post colostomy Valvular cancer GI bleed Failure to thrive Nausea and vomiting Hematemesis Anemia Plan Discussed with Dr. Reddy Scheduled for EGD with biopsy tomorrow 01/13/[address] Reddy. Discussed risks, benefits and alternatives of procedure and sedation, patient understands and agrees Clear liquid diet Protonix and Zofran Continue IV antibiotics Plan discussed with: Patient, Other (Friends at bedside, RN) My Orders Orders - ASTRID FRANCO Procedure Category Date Status Time Clear Liq Diet DIET 01/12/25 Transmitted Lunch Obtain Consent For: ORDERS 01/12/25 Transmitted 12:31 Npo (Nothing By DIET 01/12/25 Transmitted Mouth) Diet Dinner Obtain Consent For [place] 01/12/25 In Process Anesthesia 12:31 Date of Service: Jan 12, 2025 Billing Provider: ASTRID FRANCO Common Visit Codes: [id number] INP/OBS CARE(HIGH) ASTRID FRANCO Jan 12, 2025 12:40
--- NOTE | 2025-01-12 16:11 | DVHPNRES ---
Progress Note Date Seen: Jan 12, 2025 Resident Creating Document: WALLACE CHANG LORENZO Has the PT tested + for MRSA If YES, has PT been informed?: No Medical Necessity Reason Pt with a Central, PICC or Fol: No Subjective Review of Systems Seen and examined at the bedside. Patient is feeling better since admission but severe pain and shortness of breaths. Objective vital signs Vital Sign Date Time Temp Pulse Resp B/P (MAP) Pulse Ox O2 Delivery O2 Flow Rate FiO2 01/12/25 14:04 74 20 130/98 01/12/25 13:00 98.5 94 98.5 01/12/25 08:00 Nasal Cannula* 3 32 Total Intake and Output 01/11/25 01/11/25 01/12/25 14:59 22:59 06:59 Intake Total 2300 ml Output Total 200 ml 450 ml Balance 2100 ml -450 ml medications Current Medications Medications Dose Ordered Sig/Primitivo Route Start Time Stop Time Status Last Admin Dose Admin Metoclopramide HCl 10 mg Q4HP PRN IV 01/11/25 15:15 01/12/25 10:06 10 MG Acetaminophen 650 mg Q6HR PO 01/11/25 18:00 01/12/25 12:30 650 MG Ondansetron HCl 4 mg Q4HP PRN IV 01/11/25 15:15 Hold Pantoprazole Sodium 40 mg BID IV 01/11/25 22:00 01/12/25 10:06 40 MG Morphine Sulfate 1 mg Q4HPRN PRN IV 01/11/25 18:30 01/12/25 13:34 1 MG Ceftriaxone Sodium 50 ml @ 100 mls/hr DAILY@09 IV 01/12/25 09:00 01/12/25 09:44 100 MLS/HR Ketorolac Tromethamine 15 mg Q6HPRN PRN IV 01/12/25 18:00 01/17/25 09:30 Examination General Appearance: Alert, Oriented X3, Cooperative, No acute distress HEENT: Atraumatic, PERRLA, EOMI, Mucous membrane moist/pink Respiratory: Clear to auscultation, Normal air movement Cardiovascular: Regular rate, Normal S1, Normal S2, No murmurs, no chest wall tenderness Abdominal: Normal bowel sounds, Soft, No tenderness, No hepatospenomegaly, No masses Extremities: Valvular cancer with localized spread, could not evaluate completely due to patient's discomfort Skin: No rashes, No breakdown, No significant lesion Neuro: Normal gait, Normal speech, Strength at 5/5 X4 ext, Normal tone, Sensation intact, Cranial nerves 3-12 NL, Reflexes 2+ Psych/Mental Status: Mental status NL, Mood NL laboratory and microbiology Laboratory Tests 01/12/25 07:15 Test 01/12/25 07:15 Range/Units Serum Glucose 127 H 74-106 mg/dL Microbiology Date/Time Source Procedure Growth Status 01/12/25 03:20 Nose MRSA Screen - Final Complete 01/11/25 10:00 Voided Urine Urine Culture - Preliminary Resulted 01/11/25 08:54 Blood Blood Culture - Preliminary NO GROWTH AFTER 24 HOURS OF INCUBATION. Resulted Labs and/or images reviewed: Labs reviewed by me, Image(s) reviewed by me Problem List/Assessment/Plan Problem List/Assessment/Plan Bloody vomit, likely due to upper GI bleeding Valvular cancer, possibly metastatic status post radiotherapy and chemotherapy Status post colostomy Status post bilateral nephrostomy and suprapubic catheterization due to urinary incontinence Severe protein malnutrition Cachexia Possible UTI * UA shows leukocyte esterase 3+, RBC 26, WBC 502 Plan/recommendation * IV Protonix, consulted GI, planned for EGD for tomorrow * Consulted Urology due to malfunctioning of suprapubic catheter * Empiric antibiotic Unasyn for possible Enterococcus * Urine culture shows possible Enterococcus * pain management DIET: NPO from midnight for planned EGD for tomorrow morning DVT PROPHYLAXIS: SCDs GI PROPHYLAXIS:: Protonix 40 mg b.i.d. CODE STATUS: Goal of care discussed for more than 18 minutes, full code DISPOSITION: Med/surge Patient's status and plan discussed with the patient. Case discussed with Dr. Kendall. Plan discussed with: Patient, Other (RN) My Orders My Orders Orders - WALLACE CHANG Procedure Category Date Status Time Morphine Sulfate PHA 01/11/25 In Process Injection 18:30 Ceftriaxone 1gm/50ml PHA 01/12/25 In Process D5w (Rocephin) 09:00 Bladder US 01/11/25 Resulted 18:34 * Dietary Consult CONS 01/11/25 Transmitted 20:00 Electrocardigram EKG 01/12/25 Logged 04:59 Ketorolac Injection PHA 01/12/25 In Process (Toradol Injection) 18:00 Sodium Chloride 0.9% PHA 01/12/25 In Process 09:30 Sepsis reassessment post fluid Is the fluid challenge complet: Yes Date of Reassessment: Jan 11, 2025 Time of Reassessment: 1100 Blood Culture Time: 0900 Time Antibiotics Given: 0900 Systolic BP: 135 Diastolic BP: 76 Blood Pressure Mean: 95 Respiration: 17 Respiratory Effort: Non-Labored, Labored Respiratory Pattern: Regular Oxygen Saturation: 95 Pulse Rate: 92 Pulse Location: Radial Pulse Strength: Normal Pulse Assessment Method: Palpation Pulse Rhythm: Regular Capillary Refill: < 3 seconds Heart Sounds: S1 & S2 Breath sounds: Clear Skin Moisture: Dry Skin Tugor: WNL Skin Color: WNL Date of Service: Jan 12, 2025 Billing Provider: INGRID KENDALL MD Common Visit Codes: [id number] INP/OBS CARE(HIGH) WALLACE CHANG RESDIENT Jan 12, 2025 16:11 INGRID KENDALL MD Jan 14, 2025 22:50
[2025-01-12] MEDS: AMPICILLIN & SULBACTAM SODIUM 3 GM in SODIUM CHL 0.9% 100 ML IV SCH (19:03)
[2025-01-13] VITALS (7 sets, daily range): BP systolic 112–140; BP diastolic 66–90; PULSE 70–100; RESP 16–20; TEMP 97.7–98.5; O2SAT 93–97
[2025-01-13 06:27] LABS: Hematocrit 26.9 % (36.0-46.0); Hemoglobin 8.6 g/dL (12.2-16.2); Mean Corpuscular Hemoglobin 30.0 pg (28.0-32.0); Mean Corpuscular Volume 93.5 fL (80.0-100.0); Nucleated Red Blood Cells % 0.0 %
[2025-01-13 06:41] LABS: Alanine Aminotransferase 10 U/L (7-40); Albumin 3.5 g/dL (3.2-4.8); Alkaline Phosphatase 58 U/L (46-116); Anion Gap 11 (5-15); BUN/Creatinine Ratio 23.5 (10.0-20.0); Bilirubin, Total 0.4 mg/dL (0.2-1.0); Blood Urea Nitrogen 20 mg/dL (9-23); Calcium 9.4 mg/dL (8.7-10.4); Carbon Dioxide 23 mmol/L (20-31); Potassium 3.5 mmol/L (3.5-5.1); Sodium 142 mmol/L (136-145)
[2025-01-13 06:43] LABS: Chloride 108 mmol/L (98-107); Glucose 110 mg/dL (74-106); Total Protein 5.6 g/dL (5.7-8.2)
[2025-01-13] MEDS: KETOROLAC TROMETH 30 MG/ML 1ML VIAL IV ONE (06:46)
--- NOTE | 2025-01-13 07:41 | ECG ---
[facility] Test Date: 2025-01-12 Test Time: 05:13:24 Pat Name: TANISHA OLIVARES Department: Respiratoy Room: 0249 A Gender: F System Developer Associate Manager: : [id number] Requested By: WALLACE CHANG Order Number: [id number] Reading MD: Arron Gonzales Measurements Intervals [place] Rate: 112 P: 65 LA: 136 QRS: -19 QRSD: 87 T: 54 QT: 338 QTc: 462 Interpretive Statements Sinus tachycardia Borderline left axis deviation Probable anterior infarct, age indeterminate Electronically Signed On 01-13-2025 22:52:38 PDT by Arron Gonzales Please click the below link to view image of tracing.
[2025-01-13] MEDS ORDERED: SODIUM CHLORIDE LOCK 10 ML ONE (09:33)
[2025-01-13] MEDS: KETOROLAC TROMETH 30 MG/ML 1ML VIAL IV PRN (12:36)
--- NOTE | 2025-01-13 14:40 | DVHPNRES ---
Progress Note Date Seen: Jan 13, 2025 Resident Creating Document: WALLACE CHANG LORENZO Has the PT tested + for MRSA If YES, has PT been informed?: No Medical Necessity Reason Pt with a Central, PICC or Fol: No Subjective Review of Systems Patient seen and examined at the bedside. Patient is still complaining of severe pain. Objective vital signs Vital Sign Date Time Temp Pulse Resp B/P (MAP) Pulse Ox O2 Delivery O2 Flow Rate FiO2 01/13/25 13:00 97.7 81 20 126/66 (86) 93 97.7 01/13/25 08:00 Room Air* 0 21 Total Intake and Output 01/12/25 01/12/25 01/13/25 15:00 23:00 07:00 Intake Total 50 ml 520 ml 150 ml Output Total 300 ml 525 ml Balance 50 ml 220 ml -375 ml medications Current Medications Medications Dose Ordered Sig/Primitivo Route Start Time Stop Time Status Last Admin Dose Admin Metoclopramide HCl 10 mg Q4HP PRN IV 01/11/25 15:15 01/12/25 10:06 10 MG Acetaminophen 650 mg Q6HR PO 01/11/25 18:00 01/12/25 23:50 650 MG Ondansetron HCl 4 mg Q4HP PRN IV 01/11/25 15:15 Hold Pantoprazole Sodium 40 mg BID IV 01/11/25 22:00 01/12/25 23:50 40 MG Morphine Sulfate 1 mg Q4HPRN PRN IV 01/11/25 18:30 01/13/25 05:38 1 MG Ketorolac Tromethamine 15 mg Q6HPRN PRN IV 01/12/25 18:00 01/17/25 09:30 01/13/25 12:36 15 MG Ampicillin Sodium/ Sulbactam Sodium 3 gm/Sodium Chloride 100 ml @ 100 mls/hr Q6H IV 01/12/25 18:00 01/13/25 12:13 100 MLS/HR Examination General Appearance: Alert, Oriented X3, Cooperative, No acute distress HEENT: Atraumatic, PERRLA, EOMI, Mucous membrane moist/pink Respiratory: Clear to auscultation, Normal air movement Cardiovascular: Regular rate, Normal S1, Normal S2, No murmurs, no chest wall tenderness Abdominal: Normal bowel sounds, Soft, No tenderness, No hepatospenomegaly, No masses Extremities: Valvular cancer with localized spread, could not evaluate completely due to patient's discomfort Skin: No rashes, No breakdown, No significant lesion Neuro: Normal gait, Normal speech, Strength at 5/5 X4 ext, Normal tone, Sensation intact, Cranial nerves 3-12 NL, Reflexes 2+ Psych/Mental Status: Mental status NL, Mood NL laboratory and microbiology Laboratory Tests 01/13/25 06:02 Test 01/13/25 06:02 Range/Units Serum Glucose 110 H 74-106 mg/dL Microbiology Date/Time Source Procedure Growth Status 01/12/25 17:49 Leg Left Gram Stain - Final Resulted 01/12/25 17:49 Leg Left Wound Culture - Preliminary Resulted 01/12/25 17:49 Vaginal Gram Stain - Final Resulted 01/12/25 17:49 Vaginal Wound Culture - Preliminary Resulted 01/11/25 10:00 Voided Urine Urine Culture - Preliminary Klebsiella pneumoniae Resulted 01/11/25 08:54 Blood Blood Culture - Preliminary NO GROWTH AFTER 48 HOURS OF INCUBATION. Resulted Labs and/or images reviewed: Labs reviewed by me, Image(s) reviewed by me Problem List/Assessment/Plan Problem List/Assessment/Plan Bloody vomit, likely due to upper GI bleeding Valvular cancer, possibly metastatic status post radiotherapy and chemotherapy Status post colostomy Status post bilateral nephrostomy and suprapubic catheterization due to urinary incontinence Severe protein malnutrition Sacral ulcer/decubitus, grade 3-4, present on admission Cachexia Possible UTI Precipitous hemoglobin drop * UA shows leukocyte esterase 3+, RBC 26, WBC 502 * Urine culture shows possible Enterococcus Plan/recommendation * IV Protonix, consulted GI, EGD performed, showed 4 cm sliding-type hiatal hernia with severe grade C linear erosive esophagitis with circumferential and linear ulcers extending into the distal 15 cm of the esophagus and Minimal gastroduodenitis otherwise normal examination up to the 2nd and 3rd part of the duodenum * Consulted Urology due to malfunctioning of suprapubic catheter * Empiric antibiotic Unasyn for possible Enterococcus * Wound consult, and wound culture * pain management DIET: NPO from midnight for planned EGD for tomorrow morning DVT PROPHYLAXIS: SCDs GI PROPHYLAXIS:: Protonix 40 mg b.i.d. CODE STATUS: Goal of care discussed for more than 18 minutes, full code DISPOSITION: Med/surge Patient's status and plan discussed with the patient. Case discussed with Dr. Kendall. Plan discussed with: Patient, Other (RN) My Orders My Orders Orders - WALLACE CHANG Procedure Category Date Status Time Ampicillin & PHA 01/12/25 In Process Sulbactam Sodium 18:00 Npo (Nothing By DIET 01/13/25 Transmitted Mouth) Diet Breakfast * Maintenance Mechanic Technician CONS 01/13/25 Transmitted Consult Sepsis reassessment post fluid Is the fluid challenge complet: Yes Date of Reassessment: Jan 11, 2025 Time of Reassessment: 1100 Blood Culture Time: 0900 Time Antibiotics Given: 0900 Systolic BP: 135 Diastolic BP: 76 Blood Pressure Mean: 95 Respiration: 17 Respiratory Effort: Non-Labored, Labored Respiratory Pattern: Regular Oxygen Saturation: 95 Pulse Rate: 92 Pulse Location: Radial Pulse Strength: Normal Pulse Assessment Method: Palpation Pulse Rhythm: Regular Capillary Refill: < 3 seconds Heart Sounds: S1 & S2 Breath sounds: Clear Skin Moisture: Dry Skin Tugor: WNL Skin Color: WNL Date of Service: Jan 13, 2025 Billing Provider: INGRID KENDALL MD Common Visit Codes: [id number] INP/OBS CARE(HIGH) WALLACE CHANG Jan 13, 2025 14:40 INGRID KENDALL MD Jan 14, 2025 23:04
[2025-01-13] MEDS: LIDOCAINE VISCOUS 2% 15ML UD ONE (17:22)
[2025-01-13] MEDS: fentaNYL CITRATE 100 MCG/2 ML VL ONE (17:22)
[2025-01-13] MEDS: MIDAZOLAM HCL 5 MG/ML-1ML VIAL ONE (17:22)
[2025-01-13] MEDS: diphenhdrAMINE HCL 50 MG/1 ML VL ONE (17:22)
--- NOTE | 2025-01-13 17:39 | DVHOP2 ---
Operative Report DATE OF OPERATION: 01/13/25 PROCEDURE: Upper Endoscopy with biopsy. PREOPERATIVE INDICATION: The patient is a 59 -year-old female undergoing endoscopy for upper GI bleed and hematemesis POSTOPERATIVE DIAGNOSES: 1. 4 cm sliding-type hiatal hernia with severe grade C linear erosive esophagitis with circumferential and linear ulcers extending into the distal 15 cm of the esophagus 2. Minimal gastroduodenitis otherwise normal examination up to the 2nd and 3rd part of the duodenum PROCEDURE PERFORMED BY: Oscar Reddy GI NURSE: Daniela SCOPE: Olympus videoendoscope. ASA CLASS: 3 PREOPERATIVE MEDICATIONS: Versed 3 mg, Fentanyl 75 mcg, Benadryl 50 mg I administered moderate sedation throughout this _8_ minutes procedure. An independent trained observer pushed medications at my direction, and monitored the patient's level of consciousness and physiological status throughout. PROCEDURE IN DETAIL: After obtaining an informed consent, the patient was placed on left lateral decubitus position. The patient was then sedated with th e above medications. A bite block was placed between her teeth. The endoscope was then passed through the oropharynx, into the esophagus, and through the stomach and pylorus up to the second and third part of the duodenum. The endoscope was then withdrawn. The 2nd and 3rd part of the duodenal were normal and the duodenal bulb showed minimal duodenitis. Duodenal biopsies were obtained The pre-pyloric area and antrum and body showed minimal gastritis. Gastric biopsies were obtained. On retroflexion the fundus and cardia were normal The endoscope was then withdrawn into distal esophagus. Patient had a 4 cm sliding-type hiatal hernia with grade C severe erosive esophagitis extending iinto 15 cm of the distal esophagus There were circumferential and linear ulcerations with hyperemia superficial excoriation and oozing from the entire length of the esophagus. Esophageal biopsies were obtained Proximal esophagus and oropharynx were unremarkable.The patient tolerated the procedure well without difficulty. COMPLICATIONS : None SPECIMENS: Duodenal biopsies Gastric biopsies Esophageal biopsies DISPOSITION: Transfer back to the floor Stable PLAN: 1. Await for biopsy result 2. Will place pt on Protonix 40 mg bid IV 3. Carafate suspension 1 g 4 times a day 4. DC aspirin NSAIDs smoking alcohol 5. Lifestyle and dietary modifications for GERD 6. Full liquid diet advance slowly as tolerated 7. Outpatient follow up with GI Services to review results and discuss further management OSCAR REDDY MD Jan 13, 2025 17:39
[2025-01-13] MEDS: SUCRALFATE 1 GM/10 ML ORAL SUSP PO SCH (23:46)
[2025-01-14 00:57] VITALS: BP 152/87; PULSE 71; RESP 19; TEMP 98.5; O2SAT 94
[2025-01-14 05:00] VITALS: BP 136/86; PULSE 91; RESP 20; TEMP 98.1; O2SAT 93
[2025-01-14 07:05] LABS: Hematocrit 27.7 % (36.0-46.0); Hemoglobin 9.0 g/dL (12.2-16.2); Mean Corpuscular Hemoglobin 30.1 pg (28.0-32.0); Mean Corpuscular Volume 92.8 fL (80.0-100.0); Nucleated Red Blood Cells % 0.0 %
[2025-01-14 07:26] LABS: Alanine Aminotransferase 11 U/L (7-40); Alkaline Phosphatase 74 U/L (46-116); Anion Gap 15 (5-15); BUN/Creatinine Ratio 21.3 (10.0-20.0); Blood Urea Nitrogen 19 mg/dL (9-23); Calcium 9.3 mg/dL (8.7-10.4); Carbon Dioxide 20 mmol/L (20-31); Glucose 99 mg/dL (74-106); Sodium 142 mmol/L (136-145); Total Protein 5.8 g/dL (5.7-8.2)
[2025-01-14 07:27] LABS: Albumin 3.6 g/dL (3.2-4.8)
[2025-01-14 07:31] LABS: Bilirubin, Total 0.2 mg/dL (0.2-1.0); Chloride 107 mmol/L (98-107); Potassium 3.2 mmol/L (3.5-5.1)
[2025-01-14 08:58] VITALS: BP 148/86; PULSE 76; RESP 20; TEMP 98.2; O2SAT 98
[2025-01-14] MEDS ORDERED: SUCR1SUS26 PO (09:33)
[2025-01-14] MEDS ORDERED: PANT40TA2 PO (09:33)
[2025-01-14] MEDS ORDERED: CEPH500T PO (09:33)
[2025-01-14] MEDS ORDERED: GABA300T4 PO (09:33)
[2025-01-14] MEDS ORDERED: ACET-1079 PO (09:33)
[2025-01-14] MEDS ORDERED: MORP15TA PO (09:37)
[2025-01-14] MEDS: GABAPENTIN 100 MG CAP PO ONE (09:47)
[2025-01-14] MEDS: MORPHINE SULF 15mg ER tab PO ONE (09:48)
[2025-01-14] MEDS: GABAPENTIN 100 MG CAP PO SCH (13:17)
--- NOTE | 2025-01-14 16:12 | DVHPNRES ---
Progress Note Date Seen: Jan 14, 2025 Resident Creating Document: WALLACE CHANG RESDIENT Has the PT tested + for MRSA If YES, has PT been informed?: No Medical Necessity Reason Pt with a Central, PICC or Fol: No Subjective Review of Systems Patient seen and examined at the bedside. Patient is still complaining of nausea, vomiting and pain. Objective vital signs Vital Sign Date Time Temp Pulse Resp B/P (MAP) Pulse Ox O2 Delivery O2 Flow Rate FiO2 01/14/25 13:17 90 16 144/80 01/14/25 08:58 98.2 98 98.2 01/14/25 08:00 Room Air* 0 21 Total Intake and Output 01/13/25 01/13/25 01/14/25 15:00 23:00 07:00 Intake Total 0 ml 800 ml Output Total 200 ml Balance 0 ml 600 ml medications Current Medications Medications Dose Ordered Sig/Primitivo Route Start Time Stop Time Status Last Admin Dose Admin Metoclopramide HCl 10 mg Q4HP PRN IV 01/11/25 15:15 01/14/25 02:17 10 MG Acetaminophen 650 mg Q6HR PO 01/11/25 18:00 01/12/25 23:50 650 MG Ondansetron HCl 4 mg Q4HP PRN IV 01/11/25 15:15 Hold Pantoprazole Sodium 40 mg BID IV 01/11/25 22:00 01/14/25 09:47 40 MG Morphine Sulfate 1 mg Q4HPRN PRN IV 01/11/25 18:30 01/14/25 13:17 1 MG Ampicillin Sodium/ Sulbactam Sodium 3 gm/Sodium Chloride 100 ml @ 100 mls/hr Q6H IV 01/12/25 18:00 01/14/25 13:18 100 MLS/HR Sucralfate 1 gm QID@0600,1130,1700,2200 PO 01/13/25 22:00 01/14/25 13:16 1 GM Morphine Sulfate 15 mg Q12HR PO 01/14/25 22:00 Gabapentin 200 mg TID PO 01/14/25 14:00 01/14/25 13:17 200 MG Examination General Appearance: Alert, Oriented X3, Cooperative, No acute distress HEENT: Atraumatic, PERRLA, EOMI, Mucous membrane moist/pink Respiratory: Clear to auscultation, Normal air movement Cardiovascular: Regular rate, Normal S1, Normal S2, No murmurs, no chest wall tenderness Abdominal: Bilateral nephrostomy tube in place, left-sided colostomy tube, and suprapubic urostomy tube. Extremities: Valvular cancer with localized spread, could not evaluate completely due to patient's discomfort Skin: No rashes, No breakdown, No significant lesion Neuro: Normal gait, Normal speech, Strength at 5/5 X4 ext, Normal tone, Sensation intact, Cranial nerves 3-12 NL, Reflexes 2+ Psych/Mental Status: Mental status NL, Mood NL laboratory and microbiology Laboratory Tests 01/14/25 06:17 Test 01/14/25 06:17 Range/Units Serum Glucose 99 74-106 mg/dL Microbiology Date/Time Source Procedure Growth Status 01/12/25 17:49 Leg Left Gram Stain - Final Resulted 01/12/25 17:49 Leg Left Wound Culture - Preliminary Resulted 01/12/25 17:49 Vaginal Gram Stain - Final Resulted 01/12/25 17:49 Vaginal Wound Culture - Preliminary Resulted 01/11/25 10:00 Voided Urine Urine Culture - Final Complete 01/11/25 08:54 Blood Blood Culture - Preliminary NO GROWTH AFTER 72 HOURS OF INCUBATION. Resulted Labs and/or images reviewed: Labs reviewed by me, Image(s) reviewed by me Problem List/Assessment/Plan Problem List/Assessment/Plan Bloody vomit, likely due to upper GI bleeding Valvular cancer, possibly metastatic status post radiotherapy and chemotherapy Status post colostomy Status post bilateral nephrostomy and suprapubic catheterization due to urinary incontinence Severe protein malnutrition Sacral ulcer/decubitus, grade 3-4, present on admission Cachexia Possible UTI Precipitous hemoglobin drop * UA shows leukocyte esterase 3+, RBC 26, WBC 502 * Urine culture shows possible Enterococcus Plan/recommendation * IV Protonix, consulted GI, EGD performed, showed 4 cm sliding-type hiatal hernia with severe grade C linear erosive esophagitis with circumferential and linear ulcers extending into the distal 15 cm of the esophagus and Minimal gastroduodenitis otherwise normal examination up to the 2nd and 3rd part of the duodenum * Consulted Urology due to malfunctioning of suprapubic catheter, exchanged suprapubic urostomy bag w * Empiric antibiotic Unasyn for possible Enterococcus * Wound consult, and wound culture * pain management DIET: Clear liquid diet DVT PROPHYLAXIS: SCDs GI PROPHYLAXIS:: Protonix 40 mg b.i.d. CODE STATUS: Goal of care discussed for more than 18 minutes, full code DISPOSITION: Med/surge Patient's status and plan discussed with the patient. Case discussed with Dr. Kendall. Plan discussed with: Patient, Other (RN) My Orders My Orders Orders - WALLACE CHANG RESDIENT Procedure Category Date Status Time Morphine Extended PHA 01/14/25 In Process Release Tab (Oramorph 22:00 Gabapentin Capsule PHA 01/14/25 In Process (Neurontin Capsule) 14:00 Dietary Evaluation Review Comments: 1. Pt has had negligible PO intake, consider TF-vital High Protein @60mlhr (126g Protein 1440kcal 1204ml free water) 2. Offer Ensure Clear while pt is no Clear Liquid 3. May Davi BID to aid wound healing 4. Consider TPN if pt has poor tolerance to TF complicated by GI bleeding. Expected Outcomes/Goals: gradual wt gain and healed wounds Sepsis reassessment post fluid Is the fluid challenge complet: Yes Date of Reassessment: Jan 11, 2025 Time of Reassessment: 1100 Blood Culture Time: 0900 Time Antibiotics Given: 0900 Systolic BP: 135 Diastolic BP: 76 Blood Pressure Mean: 95 Respiration: 17 Respiratory Effort: Non-Labored, Labored Respiratory Pattern: Regular Oxygen Saturation: 95 Pulse Rate: 92 Pulse Location: Radial Pulse Strength: Normal Pulse Assessment Method: Palpation Pulse Rhythm: Regular Capillary Refill: < 3 seconds Heart Sounds: S1 & S2 Breath sounds: Clear Skin Moisture: Dry Skin Tugor: WNL Skin Color: WNL Date of Service: Jan 14, 2025 Billing Provider: INGRID KENDALL MD Common Visit Codes: [id number] INP/OBS CARE(HIGH) WALLACE CHANG RESDIENT Jan 14, 2025 16:12 INGRID KENDALL MD Jan 14, 2025 22:31
[2025-01-14 16:37] VITALS: BP 140/77; PULSE 77; RESP 20; TEMP 98.6; O2SAT 95
[2025-01-14] MEDS: POTASSIUM CHLORIDE 40 MEQ, LIDOCAINE 1% (LOCAL ANESTH.) 4 ML in SODIUM CHL 0.9% 250 ML IV ONE (18:31)
[2025-01-14 20:00] VITALS: PULSE 85; RESP 18; O2SAT 93
[2025-01-14] MEDS: MORPHINE SULF 15mg ER tab PO SCH (21:47)
--- NOTE | 2025-01-14 22:40 | DVHPN2 ---
Progress Note - Dictate Date Seen: Jan 14, 2025 Has the PT tested + for MRSA If YES, has PT been informed?: No Medical Necessity Reason Pt with a Central, PICC or Fol: No Subjective Patient is still complaining of nausea, vomiting and pain. vital signs Vital Sign Date Time Temp Pulse Resp B/P (MAP) Pulse Ox O2 Delivery O2 Flow Rate FiO2 01/14/25 16:37 98.6 77 20 140/77 (98) 95 98.6 01/14/25 08:00 Room Air* 0 21 Total Intake and Output 01/13/25 01/13/25 01/14/25 15:00 23:00 07:00 Intake Total 0 ml 800 ml Output Total 200 ml Balance 0 ml 600 ml medications Current Medications Medications Dose Ordered Sig/Primitivo Route Start Time Stop Time Status Last Admin Dose Admin Metoclopramide HCl 10 mg Q4HP PRN IV 01/11/25 15:15 01/14/25 02:17 10 MG Acetaminophen 650 mg Q6HR PO 01/11/25 18:00 01/14/25 17:17 650 MG Ondansetron HCl 4 mg Q4HP PRN IV 01/11/25 15:15 Hold Pantoprazole Sodium 40 mg BID IV 01/11/25 22:00 01/14/25 21:47 40 MG Morphine Sulfate 1 mg Q4HPRN PRN IV 01/11/25 18:30 01/14/25 13:17 1 MG Ampicillin Sodium/ Sulbactam Sodium 3 gm/Sodium Chloride 100 ml @ 100 mls/hr Q6H IV 01/12/25 18:00 01/14/25 17:18 100 MLS/HR Sucralfate 1 gm QID@0600,1130,1700,2200 PO 01/13/25 22:00 01/14/25 21:47 1 GM Morphine Sulfate 15 mg Q12HR PO 01/14/25 22:00 01/14/25 21:47 15 MG Gabapentin 200 mg TID PO 01/14/25 14:00 01/14/25 21:47 200 MG objective General Appearance: Alert, Oriented X3, Cooperative, No acute distress HEENT: Atraumatic, PERRLA, EOMI, Mucous membrane moist/pink Respiratory: Clear to auscultation, Normal air movement Cardiovascular: Regular rate, Normal S1, Normal S2, No murmurs, no chest wall tenderness Abdominal: Bilateral nephrostomy tube in place, left-sided colostomy tube, and suprapubic urostomy tube. Extremities: Valvular cancer with localized spread, could not evaluate completely due to patient's discomfort Skin: No rashes, No breakdown, No significant lesion Neuro: Normal gait, Normal speech, Strength at 5/5 X4 ext, Normal tone, Sensation intact, Cranial nerves 3-12 NL, Reflexes 2+ Psych/Mental Status: Mental status NL, Mood NL laboratory and microbiology Laboratory Tests 01/14/25 06:17 Test 01/14/25 06:17 Range/Units Serum Glucose 99 74-106 mg/dL Problems(with codes): (1) Gastritis and duodenitis (2) Hiatal hernia with gastroesophageal reflux disease and esophagitis (3) Nausea & vomiting (4) Vulvar cancer (5) Hypercalcemia (6) GI bleed (7) Failure to thrive (8) S/P colostomy Prognosis Plan Advance diet as tolerated Currently tolerating full liquid diet Ppi Carafate Outpatient follow up with GI as needed Suprapubic cystostomy tube replaced S/P bilateral nephrostomies and colostomy for history of vulvar cancer Hypercalcemia Dietary Evaluation Review Comments: 1. Pt has had negligible PO intake, consider TF-vital High Protein @60mlhr (126g Protein 1440kcal 1204ml free water) 2. Offer Ensure Clear while pt is no Clear Liquid 3. May Davi BID to aid wound healing 4. Consider TPN if pt has poor tolerance to TF complicated by GI bleeding. Expected Outcomes/Goals: gradual wt gain and healed wounds Plan discussed with: Patient Is the fluid challenge complet: Yes Date of Reassessment: Jan 11, 2025 Time of Reassessment: 1100 Blood Culture Time: 0900 Time Antibiotics Given: 0900 Systolic BP: 135 Diastolic BP: 76 Blood Pressure Mean: 95 Respiration: 17 Respiratory Effort: Non-Labored, Labored Respiratory Pattern: Regular Oxygen Saturation: 95 Pulse Rate: 92 Pulse Location: Radial Pulse Strength: Normal Pulse Assessment Method: Palpation Pulse Rhythm: Regular Capillary Refill: < 3 seconds Heart Sounds: S1 & S2 Breath sounds: Clear Skin Moisture: Dry Skin Tugor: WNL Skin Color: WNL OSCAR HOOKS MD Jan 14, 2025 22:40
[2025-01-15 01:00] VITALS: BP 122/72; PULSE 66; RESP 17; TEMP 97.7; O2SAT 96
[2025-01-15 04:59] VITALS: BP 120/73; PULSE 62; RESP 17; TEMP 97.7; O2SAT 95
--- NOTE | 2025-01-15 06:51 | DVHDSRES ---
Discharge Summary Date of Admission Resident Creating Document: WALLACE CHANG RESDIENT Jan 11, 2025 at 15:10 Date of Discharge: Jan 14, 2025 Labs/Diagnostic Data: Laboratory Results Test 01/15/25 06:10 01/14/25 06:17 01/11/25 10:00 01/11/25 08:54 Eosinophils (%) (Auto) 2.7 % (0.0-7.0) Eosinophils # (Auto) 0.2 10 ^3/uL (0-0.8) Basophils # (Auto) 0 10 ^3/uL (0-0.2) Nucleated Red Blood Cells 0.0 % Magnesium Level 1.4 mg/dL (1.6-2.6) Total Bilirubin 0.2 mg/dL (0.2-1.0) Aspartate Amino Transferase (AST) 18 U/L (13-40) Alanine Aminotransferase (ALT) 11 U/L (7-40) Alkaline Phosphatase 74 U/L (46-116) Total Protein 5.8 g/dL (5.7-8.2) Albumin 3.6 g/dL (3.2-4.8) Urine Color Light-brown (Yellow) Urine Clarity Ex.turbid (Clear) Urine pH 5.5 (5.0-9.0) Urine Specific [place] 1.019 (1.001-1.035) Urine Protein 2+ (Negative) Urine Ketones Negative (Negative) Urine Blood 2+ /uL (Negative) Urine Nitrite Negative (Negative) Urine Bilirubin Negative (Negative) Urine Urobilinogen Normal mg/dL (Negative) Urine Leukocyte Esterase 3+ /uL (Negative) Urine RBC 76 /hpf (0 - 4) Urine WBC Clumps Present /hpf (None Seen) Urine Microscopic WBC 502 /HPF (0-5) Urine Squamous Epithelial Cells Few /hpf (<5) Urine Bacteria Few /hpf (None Seen) Urine Mucus Few (None Seen) Urine Glucose Normal mg/dL (Normal) Prothrombin Time 10.9 sec (9.3-11.8) Prothrombin Time INR 1.03 (0.9-1.15) Activated Partial Thromboplast Time 24.0 SEC (24.5-34.5) Lactic Acid Level 1.6 mmol/L (0.4-2.0) Brief Hx & Hospital Course: HISTORY OF PRESENT ILLNESS: This is a 59-year-old female with past medical history of valvular cancer since 1 year which is locally invasive (status post radiotherapy and chemotherapy), came to the hospital due to blood in vomit. One day before coming to the hospital, she developed 2 times bloody vomit with bright red content. She also reports of generalized weakness, fatigue and shortness of breaths. Per patient, she follows at [facility] follow up with Hematology/Oncology, due to high stays, surgery was not recommended and she has a underwent chemotherapy and radiotherapy for valvular cancer (last session was 6 weeks back and due to patient intolerance it was stopped and is supposed to resume once patient's status get better). Patient was recently discharged from [facility], had underwent colostomy, bilateral nephrostomy and suprapubic catheterization. She denies fever, chest pain, or any recent sick contact. Previous hospitalization: Recently discharged from [facility] PMHx: Valvular cancer status post radiotherapy and chemotherapy PSHx: No significant Family history: Nonsignificant Social history: Ex-smoker with 26 pack year history Home medication: Albuterol, amlodipine Allergic history: No known allergy HOSPITAL COURSE: Patient was admitted at the line of upper GI bleeding, patient was started on IV Protonix, NPO and IV fluid. Patient was also given empiric antibiotic Rocephin. Gastroenterology consulted, EGD performed, showed 4 cm sliding-type hiatal hernia with severe grade C linear erosive esophagitis with circumferential and linear ulcers extending into the distal 15 cm of the esophagus and Minimal gastroduodenitis otherwise normal examination up to the 2nd and 3rd part of the duodenum. Urine culture showed possible Enterococcus, subsequently antibiotic was changed to Unasyn. During hospital admission, patient was in severe pain, the patient was given extended release morphine 50 mg b.i.d. and p.r.n. morphine. On 01/15/2025, the patient was feeling better, nausea and vomiting had improved, discharge plan discussed with the patient the patient discharged home. DISCHARGE PLAN: Follow up with the PCP within 1 week of the discharge. Follow up with the pain management on outpatient basis. Follow up with the Oncology/Hematology Morphine 15 mg twice daily Gabapentin 200 mg 3 times daily Tablet acetaminophen 650 mg 4 times daily Continue home meds FINAL DIAGNOSIS: Bloody vomit, likely due to upper GI bleeding Valvular cancer, locally invasive, possibly metastatic status post radiotherapy and chemotherapy Status post colostomy Status post bilateral nephrostomy and urostomy tube due to urinary incontinence Severe protein malnutrition Sacral ulcer/decubitus, grade 3-4, present on admission Cachexia Complicated UTI Precipitous hemoglobin drop Failure to thrive Hypercalcemia Gastritis and duodenitis Condition at Discharge: Fair Final Diagnosis/Problems List Upper GI bleeding Discharge Disposition: Home with Health Services Discharge Instruct/Medications Diet: Regular Activity: No Restrictions, As Tolerated Follow Up/Referral: Follow up with the PCP within 1 week of the discharge. Follow up with the pain management on outpatient basis. Follow up with the Oncology/Hematology Medications: Gabapentin 200 mg 3 times daily Tablet acetaminophen 650 mg 4 times daily Continue home meds Scheduled Acetaminophen (Tylenol), 650 MG PO QID Cephalexin Monohydrate (Cephalexin), 1 TAB PO BID Gabapentin (Once-Daily) (Gabapentin), 300 MG PO TID Morphine Sulfate (Morphine Sulfate), 1 TAB PO BID Pantoprazole Sodium Sesquihydr (Protonix), 40 MG PO BID Sucralfate (Carafate Susp), 10 ML PO QID Discharge Statement: "Patient was advised to return to the ER or call 911 if any headaches, dizziness, shortness of breath, chest pain, abdominal pain, bleeding, fevers, or worsening of medical condition. Patient was counseled about treatment plan, medications, possible side effects, patientverbalized understanding. All questions were answered to the best of my ability. This discharge took greater then 30 minutes in planning, reviewing documentation, counseling the patient, and discussing with other team members." ASSESSMENT ASSESSMENT Assessment Upper GI bleeding Date of Service: Jan 14, 2025 Billing Provider: INGRID KENDALL MD Common Visit Codes: [id number] DISCH DAY >30min WALLACE CHANG RESDIENT Jan 15, 2025 06:51 INGRID KENDALL MD Jan 22, 2025 21:25
[2025-01-15] MEDS: MORPHINE SULFATE INJ 2 MG/ml SYRG IV ONE (07:04)
[2025-01-15 07:13] LABS: Sodium 140 mmol/L (136-145)
[2025-01-15 07:14] LABS: Anion Gap 8 (5-15); Carbon Dioxide 24 mmol/L (20-31)
[2025-01-15 07:15] LABS: Calcium 8.7 mg/dL (8.7-10.4)
[2025-01-15 07:19] LABS: Glucose 99 mg/dL (74-106)
[2025-01-15 07:20] LABS: BUN/Creatinine Ratio 13.9 (10.0-20.0); Blood Urea Nitrogen 11 mg/dL (9-23)
[2025-01-15 07:21] LABS: Hematocrit 26.6 % (36.0-46.0); Hemoglobin 8.1 g/dL (12.2-16.2); Mean Corpuscular Hemoglobin 29.6 pg (28.0-32.0); Mean Corpuscular Volume 96.9 fL (80.0-100.0); Nucleated Red Blood Cells % 0.1 %
[2025-01-15 07:23] LABS: Chloride 108 mmol/L (98-107); Potassium 3.3 mmol/L (3.5-5.1)
[2025-01-15 09:00] VITALS: BP 112/72; PULSE 69; RESP 18; TEMP 97.7; O2SAT 93
[2025-01-15 13:00] VITALS: BP 114/67; PULSE 68; RESP 18; TEMP 97.6; O2SAT 97
[2025-01-15 17:00] VITALS: BP 107/60; PULSE 74; RESP 18; TEMP 98.1; O2SAT 95
== END 2025-01-15 17:05 | disposition home health service (06) | DRG 380 ==
LOC: ER 08:18 → EDBD 08:18 → OVERFLOW 15:10 → EAST 18:08
PROVIDERS: ADMIT Student in an Organized Health Care Education/Training Program; ATTEND Student in an Organized Health Care Education/Training Program
PROC: 0DB68ZX Excision of Stomach, Via Natural or Artificial Opening Endoscopic, Diagnostic (ICD-10-PCS; 2025-01-13)
PROC: 0DB38ZX Excision of Lower Esophagus, Via Natural or Artificial Opening Endoscopic, Diagnostic (ICD-10-PCS; 2025-01-13)
PROC: 0DB98ZX Excision of Duodenum, Via Natural or Artificial Opening Endoscopic, Diagnostic (ICD-10-PCS; principal; 2025-01-13 17:17)
DX: K22.11 Ulcer of esophagus with bleeding (principal); E43 Unspecified severe protein-calorie malnutrition; L89.154 Pressure ulcer of sacral region, stage 4; R64 Cachexia; N39.0 Urinary tract infection, site not specified; R71.0 Precipitous drop in hematocrit; K29.71 Gastritis, unspecified, with bleeding; K29.81 Duodenitis with bleeding; K29.91 Gastroduodenitis, unspecified, with bleeding; E83.52 Hypercalcemia; K44.9 Diaphragmatic hernia without obstruction or gangrene; R62.7 Adult failure to thrive; Z93.3 Colostomy status; Z85.44 Personal history of malignant neoplasm of other female genital organs; Z68.22 Body mass index [BMI] 22.0-22.9, adult; Z79.899 Other long term (current) drug therapy
CPT/HCPCS: 36415; 43239; 71045; 76857; 80048; 80053; 81001; 83605; 83735; 85025; 85610; 85730; 86850; 86900; 86901; 87040; 87077; 87081; 87086; 87088; 87186; 87205; 93005; 96365; 99291; 99292; G0378; J1885; J2003; J2250; J2405; J2470

== ENCOUNTER 2025-01-28 13:10 | Inpatient (IN) | payer OTHER ==
[~2025-01-28] VITALS: Ht 175.3 cm; Wt 65.0 kg
[~2025-01-28 13:10] MED LIST: ACET-1079 PO; CEPH500T PO; GABA300T4 PO; MORP15TA PO; PANT40TA2 PO; SUCR1SUS26 PO
[2025-01-28 13:30] VITALS: PULSE 79; RESP 15
--- NOTE | 2025-01-28 13:47 | ED.PDOC ---
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 She states she does have a small wound on the left leg which has been under the care of her home health nurse. She states the wound is not painful, and her left lower extremity is not painful. She denies any fever, wound discharge, current chest pain or shortness of breath. Chief Complaint: Extremity Swelling Time Seen by MD: 13:37 Reviewed Notes: Medications, Allergies Allergies: Coded Allergies: NO KNOWN ALLERGIES (Unverified , 01/11/25) Home Meds Active Scripts Morphine Sulfate (Morphine Sulfate) 15 Mg Tab, 1 TAB PO BID for 14 Days, #28 TAB Prov:INGRID KENDALL MD 01/14/25 Cephalexin Monohydrate (Cephalexin) 500 Mg Tab, 1 TAB PO BID for 4 Days, #8 TAB Prov:HEWALLACE HOOK RESDIENT 01/14/25 Acetaminophen (Tylenol) 325 Mg Tb, 650 MG PO QID for 15 Days, #60 TAB Prov:WALLACE CHANG RESDIENT 01/14/25 Gabapentin (Once-Daily) (Gabapentin) 300 Mg Tab, 300 MG PO TID for 15 Days, #45 TAB Prov:WALLACE CHANG RESDIENT 01/14/25 Sucralfate (CARAFATE SUSP) 1 Gm/10 Ml Ss, 10 ML PO QID, #1200 ML 3 Refills Prov:WALLACE CHANG RESDIENT 01/14/25 Pantoprazole Sodium Sesquihydr (Protonix) 40 Mg Tab, 40 MG PO BID for 15 Days, #30 TAB Prov:WALLACE CHANG RESDIENT 01/14/25 Information Source: Patient Mode of Arrival: EMS Past Medical History PAST MEDICAL HISTORY: Asthma, Cancer (Vulvar cancer undergoing XRT and chemotherapy), HTN Surgical History (Other): Colostomy, bilateral nephrostomies/urostomy [employer] History: Other (Vulvar cancer) Family History Family History: Reviewed,noncontributory to illness Social History Smoker: Non-Smoker Alcohol: Denies ETOH Use Drugs: Denies Drug Use Lives In: Home All Other Systems: Reviewed and Negative (Comprehensive systems review obtained and negative except for what is stated in the HPI.) Physical Exam General Appearance: Mild Distress HEENT: Other (Pupils and face symmetric. Moist mucous membranes.) Neck: Full Range of Motion, Normal Inspection Respiratory: Lungs Clear, No Accessory Muscle Use, No Respiratory Distress, Normal Breath Sounds Cardiovascular: No JVD, Regular Rate/Rhythm Breast Exam: Deferred Gastrointestinal: Non Tender, Soft Genitalia: Deferred Pelvic: Deferred Rectal: Deferred Extremities: Other (Left lower extremity diffuse 2+ edema, no erythema or tenderness.) Neurologic: Alert (Oriented x4), Normal Affect, Normal Mood, Other (No gross focal deficit) Cerebellar Function: NOT DONE Reflexes: NOT DONE Skin: Dry, Normal Color, Warm, Wounds (Approximate 1 cm wound lower leg medial aspect with overlying blood clot. No surrounding erythema, edema or tenderness.) Lymphatic: NOT DONE Was a procedure done? Was a procedure done?: No EKG EKG : Comments Sinus rhythm, rate 87, normal intervals, normal axis, normal QRS, nonspecific T change. Differential Diagnosis EXT Differential Diagnosis: Cellulitis, CHF, Deep Vein Thrombosis, Other (Venous insufficiency) X-Ray, Labs, Meds, VS Vital Signs Date Time Temp Pulse Resp B/P (MAP) Pulse Ox O2 Delivery O2 Flow Rate FiO2 01/28/25 18:30 74 13 90/47 (61) 100 01/28/25 16:30 72 15 100/57 (71) 100 01/28/25 15:30 82 12 91/44 (60) 96 01/28/25 13:30 79 15 Room Air* 0 21 01/28/25 13:30 98.3 79 15 95/49 (64) 96 98.3 01/28/25 13:15 87 01/28/25 13:13 97.9 98 20 111/68 98 97.9 Lab Test 01/28/25 16:25 01/28/25 14:28 Range/Units Urine Color Colorless Yellow Urine Clarity Turbid H Clear Urine pH 5.5 5.0-9.0 Urine Specific [place] 1.014 1.001-1.035 Urine Protein 1+ H Negative Urine Ketones Negative Negative Urine Blood 3+ H Negative /uL Urine Nitrite 2+ H Negative Urine Bilirubin Negative Negative Urine Urobilinogen Normal Negative mg/dL Urine Leukocyte Esterase 3+ Negative /uL Urine RBC 128 0 - 4 /hpf Urine WBC Clumps Present None Seen /hpf Urine Microscopic WBC 127 H 0-5 /HPF Urine Squamous Epithelial Cells None seen <5 /hpf Urine Bacteria Few H None Seen /hpf Urine Mucus Few None Seen Urine Yeast (Budding) Few None Seen /hpf Urine Glucose Normal Normal mg/dL White Blood Count 6.9 4.4-10.8 10^3/uL Red Blood Count 3.23 L 4.0-5.20 10^6/uL Hemoglobin 9.0 L 12.2-16.2 g/dL Hematocrit 29.1 L 36.0-46.0 % Mean Corpuscular Volume 90.2 80.0-100.0 fL Mean Corpuscular Hemoglobin 27.8 L 28.0-32.0 pg Mean Corpuscular Hemoglobin Concent 30.8 L 32.0-36.0 g/dL Red Cell Distribution Width 17.4 H 11.8-14.3 % Platelet Count 267 140-450 10^3/uL Mean Platelet Volume 7.2 6.9-10.8 fL Neutrophils (%) (Auto) 82.8 H 37.0-80.0 % Lymphocytes (%) (Auto) 7.3 L 10.0-50.0 % Monocytes (%) (Auto) 5.8 0.0-12.0 % Eosinophils (%) (Auto) 3.8 0.0-7.0 % Basophils (%) (Auto) 0.3 0.0-2.0 % Neutrophils # (Auto) 5.7 1.6-8.6 10 ^3/uL Lymphocytes # (Auto) 0.5 0.4-5.4 10 ^3/uL Monocytes # (Auto) 0.4 0-1.3 10 ^3/uL Eosinophils # (Auto) 0.3 0-0.8 10 ^3/uL Basophils # (Auto) 0 0-0.2 10 ^3/uL Nucleated Red Blood Cells 0.0 % Prothrombin Time 11.0 9.3-11.8 sec Prothrombin Time INR 1.04 0.9-1.15 Activated Partial Thromboplast Time 28.0 24.5-34.5 SEC Sodium Level 140 136-145 mmol/L Potassium Level 4.4 3.5-5.1 mmol/L Chloride Level 102 98-107 mmol/L Carbon Dioxide Level 31 20-31 mmol/L Anion Gap 7 5-15 Blood Urea Nitrogen 15 9-23 mg/dL Creatinine 0.89 0.550-1.02 mg/dL Glomerular Filtration Rate Calc 74 >90 mL/min BUN/Creatinine Ratio 16.9 10.0-20.0 Serum Glucose 117 H 74-106 mg/dL Lactic Acid Level 1.6 0.4-2.0 mmol/L Calcium Level 9.6 8.7-10.4 mg/dL B-Type Natriuretic Peptide 51.86 0-100 pg/mL Current Medications Medications (Trade) Dose Ordered Sig/Primitivo Route Start Time Stop Time Status Last Admin Sodium Chloride 1,000 ml @ 1,000 mls/hr Q1H ONCE IV 01/28/25 16:00 01/28/25 16:59 DC 01/28/25 18:30 PROCEDURE(s): CXRP - CHEST PORTABLE REASON: edema ORDER NUMBER(s): [id number], ACCESSION NUMBER(s): [id number] INDICATION: edema TECHNIQUE: Frontal view of the chest. COMPARISON: XY CHEST PORTABLE on DOS: 01/11/25, CT CHEST ABDOMEN PELVIS WO CONTRAST on DOS: 09/23/24, XR CHEST 1 VW on DOS: 09/23/24 FINDINGS: . The heart and mediastinal contours are grossly unremarkable. There is no evidence of pleural disease. The lungs are clear. The bony structures of the chest are intact without fracture. IMPRESSION: 1. No evidence of acute disease. [place] [id number] Ph: [phone] DIAGNOSTIC IMAGING Diagnostic Imaging Report : [id number] Signed PATIENT: TANISHA OLIVARES ACCT: [id number] UNIT: [id number] : 1965 LOC: ER ROOM / BED: / AGE / SEX: 59 / F ADM STATUS: REG ER SERVICE 1344 ORDERING PHYSICIAN: DANA MCKEON MD PROCEDURE(s): LLDVT - LT Lower DVT REASON: LLE edema ORDER NUMBER(s): [id number], ACCESSION NUMBER(s): [id number] Left lower extremity venous duplex Clinical History: LLE edema Comparison: None Findings: Duplex Doppler evaluation of the deep venous system of the left lower extremity from the common femoral vein to the popliteal vein including color Doppler and spectral/pulsed waveform analysis was performed. Extensive thrombus from the left common femoral vein to the posterior tibial vein Critical Result: DVT Findings discussed with Dr. Herrera , at 01/28/2025 02:29 PM, and acknowledged receipt and understanding of the findings. Impression: Extensive thrombus from the left common femoral vein to the posterior tibial vein If clinical concern/symptoms persist or worsen, short-interval follow-up study is suggested. ATED BY: CHARLINE SALES MD DICTATED DATE/TIME: 01/28/25 143 SIGNED BY: CHARLINE SALES MD SIGNED DATE/TIME: 01/28/25 143 CC: Left lower extremity ultrasound preliminarily reported by technologist: Extensive thrombus with no flow seen through out the left lower extremity X-Ray, Labs, Meds, VS Comment 59-year-old female with a history of vulvar cancer, asthma and hypertension presenting with left lower extremity swelling Vitals unremarkable Exam remarkable for left lower extremity diffuse edema Rhythm strip independently interpreted by me: Sinus rhythm, rate 87, no ectopy. Chest x-ray unremarkable Left lower extremity ultrasound Extensive thrombus from the left common femoral vein to the posterior tibial vein CBC remarkable for hemoglobin 9, hematocrit 29.1, basic metabolic panel, BNP and lactate unremarkable. The following was ordered for the patient in the ED: Morphine 4 mg IV, Zofran 4 mg IV for vulvar pain due to the cancer, 1 L normal saline IV bolus On re-evaluation, patient was sleeping with stable vitals. Case discussed with Dr. Espinal (Interventional Radiology), who will consult. Plan is to admit the patient for thrombectomy and/or anticoagulation. Patient was seen by Dr. Espinal who discussed the risks, benefits and alternatives to thrombectomy treatment. Patient agreed to the procedure. Dr. Espinal will not be available to perform the procedure tomorrow, so he will contact the interventional radiologist on duty tomorrow to see if the procedure can be performed tomorrow. Time of 1ST Reevaluation: 15:11 Reevaluation 1ST: Improved Patient Education/Counseling: Diagnosis, Treatment Family Education/Counseling: No Family Present Sepsis Sepsis Reasesment Focused Exam Orders: Laboratory Tests 01/28/25 14:28: Lactic Acid Level 1.6 Departure 1 Departure Time of Disposition: 14:30 Impression: Primary Impression: Deep vein thrombosis of left lower extremity Disposition: ADMITTED INPATIENT Admit to: Med Surg Condition: Guarded Critical Care Note Critical Care Time?: No Stability Stability form required: No Heart Score Heart Score: Heart Score Response (Comments) Value History N/A 0 EKG N/A 0 Age N/A 0 Risk Factors N/A 0 Troponin N/A 0 Total 0 I personally scribed for DANA MCKEON MD ([email or web address]) on 01/28/25 at 13:47. Electronically submitted by Marquez Cosby ([facility]). I personally scribed for DANA MCKEON MD ([email or web address]) on 01/28/25 at 14:42. Electronically submitted by Marquez Cosby ([facility]). I personally scribed for DANA MCKEON MD (LAWANDAHARINDER) on 01/28/25 at 14:43. Electronically submitted by Marquez Cosby ([facility] DANA MCKEON MD Jan 28, 2025 13:47
[2025-01-28] MEDS: MORPHINE SULFATE 4 MG/ML SYR/VIAL IV ONE (14:20)
[2025-01-28] MEDS: ONDANSETRON HCL 4 MG/2 ML VIAL IV ONE (14:20)
--- NOTE | 2025-01-28 14:23 | DVH ---
INDICATION: edema TECHNIQUE: Frontal view of the chest. COMPARISON: XY CHEST PORTABLE on DOS: 01/11/25, CT CHEST ABDOMEN PELVIS WO CONTRAST on DOS: 09/23/24, X R CHEST 1 VW on DOS: 09/23/24 FINDINGS: . The heart and mediastinal contours are grossly unremarkable. There is no evidence of pleural disea se. The lungs are clear. The bony structures of the chest are intact without fracture. IMPRESSION: 1. No evidence of acute disease.
--- NOTE | 2025-01-28 14:32 | DVH ---
Left lower extremity venous duplex Clinical History: LLE edema Comparison: None Findings: Duplex Doppler evaluation of the deep venous system of the left lower extremity from the common femor al vein to the popliteal vein including color Doppler and spectral/pulsed waveform analysis was perfo rmed. Extensive thrombus from the left common femoral vein to the posterior tibial vein Impression: Extensive thrombus from the left com Critical Result: DVT Findings discussed withDr. Herrera , at 01/28/2025 02:29 PM, and acknowledged receipt and understanding of the findings. .. mon femoral vein to the posterior tibial vein If clinical concern/symptoms persist or worsen, short-interval follow-up study is suggested.
[2025-01-28 14:43] LABS: Hematocrit 29.1 % (36.0-46.0); Hemoglobin 9.0 g/dL (12.2-16.2); Mean Corpuscular Hemoglobin 27.8 pg (28.0-32.0); Mean Corpuscular Volume 90.2 fL (80.0-100.0); Nucleated Red Blood Cells % 0.0 %
[2025-01-28 14:51] LABS: Chloride 102 mmol/L (98-107); Potassium 4.4 mmol/L (3.5-5.1); Sodium 140 mmol/L (136-145)
[2025-01-28 14:52] LABS: Anion Gap 7 (5-15); Calcium 9.6 mg/dL (8.7-10.4); Carbon Dioxide 31 mmol/L (20-31)
[2025-01-28 14:57] LABS: BUN/Creatinine Ratio 16.9 (10.0-20.0); Blood Urea Nitrogen 15 mg/dL (9-23)
[2025-01-28 14:58] LABS: Glucose 117 mg/dL (74-106)
[2025-01-28 14:59] LABS: INR 1.04 (0.9-1.15); Partial Thromboplastin Time 28.0 SEC (24.5-34.5); Prothrombin Time 11.0 sec (9.3-11.8)
[2025-01-28 16:42] LABS: Urine Budding Yeast FEW /hpf (None Seen); Urine Protein, UAD 1+ (Negative); Urine WBC Clumps PRESENT /hpf (None Seen)
[2025-01-28] MEDS: SODIUM CHLORIDE 0.9% 1,000 ML IV ONE (18:30)
--- NOTE | 2025-01-28 19:38 | ECG ---
[facility] Test Date: 2025-01-28 Test Time: 13:15:05 Pat Name: TANISHA OLIVARES Department: [facility] ED Patient ID: [facility]-[id number] Room: 0222 Gender: F Counter Clerk: rikki : 1965 Requested By: EMERGENCY EMERGENCY Order Number: [id number] Reading MD: Arron Gonzales Measurements Intervals [place] Rate: 87 P: 48 [place]: 133 QRS: 47 QRSD: 90 T: 42 QT: 359 QTc: 432 Interpretive Statements Sinus rhythm Borderline low voltage, extremity leads Electronically Signed On 01-29-2025 17:02:55 PDT by Arron Gonzales Please click the below link to view image of tracing.
[2025-01-28] MEDS ORDERED: ONDANSETRON HCL 4 MG/2 ML VIAL IV PRN (20:00)
[2025-01-28] MEDS ORDERED: ACETAMINOPHEN 325 MG TAB PO PRN (20:00)
[2025-01-28 20:30] LABS: Hematocrit 30.6 % (36.0-46.0); Hemoglobin 9.4 g/dL (12.2-16.2); Mean Corpuscular Hemoglobin 28.3 pg (28.0-32.0); Mean Corpuscular Volume 92.4 fL (80.0-100.0); Nucleated Red Blood Cells % 0.0 %
[2025-01-28 21:24] LABS: INR 1.03 (0.9-1.15); Partial Thromboplastin Time 24.8 SEC (24.5-34.5); Prothrombin Time 10.9 sec (9.3-11.8)
[2025-01-28] MEDS: HEPARIN SODIUM (PORCINE) 5000 UNITS/ML 1ML VIAL IV ONE (22:03)
[2025-01-28] MEDS: HEPARIN DRIP/D5W 100UNITS/ML 250 ML IV SCH (22:04)
[2025-01-28 22:48] VITALS: BP_SYST 114; BP_SYST 154; BP_DIAS 72; BP_DIAS 75; PULSE 78; RESP 17; TEMP 98.1; O2SAT 96; O2SAT 98
[2025-01-28] MEDS: HYDROcodone-ACET 5/325MG TAB PO PRN (23:45)
[2025-01-29] VITALS (9 sets, daily range): BP systolic 104–120; BP diastolic 60–71; PULSE 67–83; RESP 17–18; TEMP 97.6–98.3; O2SAT 94–98
[2025-01-29] MEDS: OLANZapine 5 MG TAB PO ONE (03:37)
--- NOTE | 2025-01-29 04:08 | DVHHP2 ---
History of Present Illness Reason for Visit: Extremity swelling History of Present Illness 59-year-old female presents for evaluation of left lower extremity swelling. Patient reports a two day history of noticing her left lower extremity becoming progressively more swollen. She does have a history of valvular cancer currentl y undergoing radiation and chemotherapy. Denies chest pain or shortness for breath. Past Medical History Asthma, cancer, hypertension Past Surgical History Colostomy, bilateral nephrostomy Family History Noncontributory Smoke: No ALCOHOL: none Drugs: None Lives: with Family Review of Systems Review of Systems Review of systems are currently negative otherwise addressed in HPI. Allergies: Coded Allergies: NO KNOWN ALLERGIES (Unverified , 01/11/25) Medications Current Medications Medications Dose Ordered Sig/Primitivo Route Start Time Stop Time Status Last Admin Dose Admin Heparin Sodium/ Dextrose 250 ml @ 12 mls/hr [id number] IV 01/28/25 22:00 01/28/25 22:04 12 MLS/HR Amlodipine Besylate 5 mg DAILY PO 01/29/25 10:00 Pantoprazole Sodium 40 mg DAILY@0600 PO 01/29/25 06:00 Acetaminophen/ Hydrocodone Bitart 1 tab Q4HP PRN PO 01/28/25 20:00 01/28/25 23:45 1 TAB Ondansetron HCl 4 mg Q4HP PRN IV 01/28/25 20:00 Acetaminophen 650 mg Q6HP PRN PO 01/28/25 20:00 Trazodone HCl 150 mg HS PO 01/29/25 22:00 Exam Vital Signs Vital Signs Date Time Temp Pulse Resp B/P (MAP) Pulse Ox O2 Delivery O2 Flow Rate FiO2 01/29/25 01:00 97.7 67 17 116/68 (84) 97 97.7 01/28/25 13:30 Room Air* 0 21 Exam Gen: 59-year-old female in mild distress Skin: Warm, dry, normal color and texture, no rash. HEENT: Normocephalic atraumatic, mucous membranes moist and pink. Neck: Cervical and supraclavicular nodes normal without enlargement, trachea is midline, thyroid gland is normal without masses. Pulmonary: Clear to auscultation and percussion bilaterally. Cardiac: Regular rate and rhythm. No murmur Abdomen: Soft, nontender, nondistended, bowel sounds present all 4 quadrants, no guarding, no rigidity, no organomegaly. Extremities: No cyanosis, clubbing, left lower extremity with plus one edema t, normal affect and speech, no focal motor deficits. Labs/Xrays ORDERING PHYSICIAN: DANA MCKEON MD PROCEDURE(s): LLDVT - LT Lower DVT REASON: LLE edema ORDER NUMBER(s): [id number], ACCESSION NUMBER(s): [id number] Left lower extremity venous duplex Clinical History: LLE edema Comparison: None Findings: Duplex Doppler evaluation of the deep venous system of the left lower extremity from the common femoral vein to the popliteal vein including color Doppler and spectral/pulsed waveform analysis was performed. Extensive thrombus from the left common femoral vein to the posterior tibial vein Impression: Extensive thrombus from the left com Critical Result: DVT Findings discussed withDr. Herrera , at 01/28/2025 02:29 PM, and acknowledged receipt and understanding of the findings. .. mon femoral vein to the posterior tibial vein If clinical concern/symptoms persist or worsen, short-interval follow-up study is suggested. Labs Test 01/28/25 20:04 01/28/25 16:25 01/28/25 14:28 Range/Units White Blood Count 8.2 4.4-10.8 10^3/uL Red Blood Count 3.31 L 4.0-5.20 10^6/uL Hemoglobin 9.4 L 12.2-16.2 g/dL Hematocrit 30.6 L 36.0-46.0 % Mean Corpuscular Volume 92.4 80.0-100.0 fL Mean Corpuscular Hemoglobin 28.3 28.0-32.0 pg Mean Corpuscular Hemoglobin Concent 30.6 L 32.0-36.0 g/dL Red Cell Distribution Width 17.7 H 11.8-14.3 % Platelet Count 271 140-450 10^3/uL Mean Platelet Volume 7.4 6.9-10.8 fL Neutrophils (%) (Auto) 77.5 37.0-80.0 % Lymphocytes (%) (Auto) 9.9 L 10.0-50.0 % Monocytes (%) (Auto) 7.8 0.0-12.0 % Eosinophils (%) (Auto) 4.6 0.0-7.0 % Basophils (%) (Auto) 0.2 0.0-2.0 % Neutrophils # (Auto) 6.3 1.6-8.6 10 ^3/uL Lymphocytes # (Auto) 0.8 0.4-5.4 10 ^3/uL Monocytes # (Auto) 0.6 0-1.3 10 ^3/uL Eosinophils # (Auto) 0.4 0-0.8 10 ^3/uL Basophils # (Auto) 0 0-0.2 10 ^3/uL Nucleated Red Blood Cells 0.0 % Prothrombin Time 10.9 9.3-11.8 sec Prothrombin Time INR 1.03 0.9-1.15 Activated Partial Thromboplast Time 24.8 24.5-34.5 SEC Urine Color Colorless Yellow Urine Clarity Turbid H Clear Urine pH 5.5 5.0-9.0 Urine Specific [place] 1.014 1.001-1.035 Urine Protein 1+ H Negative Urine Ketones Negative Negative Urine Blood 3+ H Negative /uL Urine Nitrite 2+ H Negative Urine Bilirubin Negative Negative Urine Urobilinogen Normal Negative mg/dL Urine Leukocyte Esterase 3+ Negative /uL Urine RBC 128 0 - 4 /hpf Urine WBC Clumps Present None Seen /hpf Urine Microscopic WBC 127 H 0-5 /HPF Urine Squamous Epithelial Cells None seen <5 /hpf Urine Bacteria Few H None Seen /hpf Urine Mucus Few None Seen Urine Yeast (Budding) Few None Seen /hpf Urine Glucose Normal Normal mg/dL Sodium Level 140 136-145 mmol/L Potassium Level 4.4 3.5-5.1 mmol/L Chloride Level 102 98-107 mmol/L Carbon Dioxide Level 31 20-31 mmol/L Anion Gap 7 5-15 Blood Urea Nitrogen 15 9-23 mg/dL Creatinine 0.89 0.550-1.02 mg/dL Glomerular Filtration Rate Calc 74 >90 mL/min BUN/Creatinine Ratio 16.9 10.0-20.0 Serum Glucose 117 H 74-106 mg/dL Lactic Acid Level 1.6 0.4-2.0 mmol/L Calcium Level 9.6 8.7-10.4 mg/dL B-Type Natriuretic Peptide 51.86 0-100 pg/mL SEPSIS Sepsis Screen Date sepsis recognized/suspect: Jan 28, 2025 Time Sepsis recognized/suspect: 1330 Recent Procedure: No On Antibiotic Therapy: No Respiratory Rate >20: No Heart Rate >90: No Temp<36 C (96.8 F) or >38.3 C: No SBP <90 or MAP <65 mmHG: No New Acute Mental Status Change: No Is the patient on CPAP, BIPAP,: No Physician Orders Director [employer] (01/28/25 22:19) Transfer Orders (01/28/25 22:27) PTPTT (01/29/25 04:00) Trazodone Hcl (Desyrel) (01/29/25 22:00) Hepatitis B Surface Antigen (01/29/25 00:43) Hepatitis C Antibody (01/29/25 00:43) * Wound Consult (01/29/25 ) Vital Signs Date Time Temp Pulse Resp B/P (MAP) Pulse Ox O2 Delivery O2 Flow Rate FiO2 01/29/25 01:00 97.7 67 17 116/68 (84) 97 97.7 01/28/25 22:48 98.1 78 17 114/72 (86) 96 98.1 01/28/25 22:48 98.1 78 17 154/75 (101) 98 98.1 01/28/25 22:48 98.1 78 17 154/75 (101) 98 98.1 01/28/25 22:00 72 16 111/58 (75) 95 01/28/25 20:30 68 14 88/55 (66) 96 Laboratory Tests Test 01/28/25 20:04 White Blood Count 8.2 10^3/uL (4.4-10.8) Medications Medications Dose Ordered Sig/Primitivo Route Start Time Stop Time Status Last Admin Dose Admin Acetaminophen/ Hydrocodone Bitart 1 tab Q4HP PRN PO 01/28/25 20:00 01/28/25 23:45 1 TAB Heparin Sodium (Porcine) 5,000 units ONCE ONCE IV 01/28/25 22:00 01/28/25 22:01 DC 01/28/25 22:03 5,000 UNITS Heparin Sodium/ Dextrose 250 ml @ 12 mls/hr [id number] IV 01/28/25 22:00 01/28/25 22:04 12 MLS/HR Olanzapine 10 mg ONCE ONCE PO 01/28/25 22:45 01/28/25 22:46 DC 01/29/25 03:37 10 MG Sodium Chloride 1,000 ml @ 1,000 mls/hr Q1H ONCE IV 01/28/25 16:00 01/28/25 16:59 DC 01/28/25 18:30 1,000 MLS/HR Assessment/Plan Assessment/Plan Assessment Left lower extremity DVT Hypertension Cancer Plan Admit the patient to [facility] surge to the hospitalist Heparin drip Radiology consult Resume home medications Continue treatment per orders. Plan discussed with: Patient My Orders Orders - ADAMARIS TONG Procedure Category Date Status Time * Radiologist Consult CONS 01/28/25 Transmitted 19:48 Platelet Monitoring [place] 01/28/25 In Process 19:48 Vte Protocol Initiated [place] 01/28/25 In Process 19:48 Heparin Per [place] 01/28/25 In Process Standardized Proce 19:48 Discontinue All Im [place] 01/28/25 In Process Injections 19:48 Heparin Drip/D5w PHA 01/28/25 In Process 100units/Ml 22:00 Amlodipine Tablet PHA 01/29/25 In Process (Norvasc Tablet) 10:00 Pantoprazole Tablet PHA 01/29/25 In Process (Protonix Tablet) 06:00 Basic Metabolic Panel LAB 01/29/25 Logged 04:00 Admit ADMIT 01/28/25 Transmitted 19:48 Hydrocodone-Acet PHA 01/28/25 In Process 5/325mg Tab ([place] 20:00 Ondansetron Hcl PHA 01/28/25 In Process (Zofran) 20:00 Cardiac DIET 01/29/25 Transmitted Diet-2gna,Lofat,Lochol Breakfast Condition: Stable [place] 01/28/25 In Process 19:48 Acetaminophen Tablet PHA 01/28/25 In Process (Tylenol Tablet) 20:00 Bedrest With Bathroom [place] 01/28/25 In Process Privileg 19:48 PTPTT LAB 01/29/25 Logged 04:00 Hepatitis B Surface LAB 01/29/25 Logged Antigen 00:43 Hepatitis C Antibody LAB 01/29/25 Logged 00:43 * Wound Consult CONS 01/29/25 Transmitted Date of Service: Jan 28, 2025 Billing Provider: ADAMARIS TONG Common Visit Codes: [id number] INP/OBS CARE (HIGH) ADAMARIS TONG Jan 29, 2025 04:08
[2025-01-29] MEDS: PANTOPRAZOLE 40 MG TAB PO SCH (05:07)
[2025-01-29 05:44] LABS: Chloride 104 mmol/L (98-107); Potassium 4.0 mmol/L (3.5-5.1); Sodium 141 mmol/L (136-145)
[2025-01-29 05:45] LABS: Anion Gap 8 (5-15); Carbon Dioxide 29 mmol/L (20-31)
[2025-01-29 05:46] LABS: Calcium 9.5 mg/dL (8.7-10.4)
[2025-01-29 05:50] LABS: BUN/Creatinine Ratio 14.9 (10.0-20.0); Blood Urea Nitrogen 14 mg/dL (9-23); Glucose 99 mg/dL (74-106)
[2025-01-29 06:05] LABS: INR 1.06 (0.9-1.15); Prothrombin Time 11.2 sec (9.3-11.8)
[2025-01-29 06:13] LABS: Partial Thromboplastin Time 80.6 SEC (24.5-34.5)
[2025-01-29] MEDS: HEPARIN DRIP/D5W 100UNITS/ML 250 ML IV SCH (06:33)
[2025-01-29] MEDS ORDERED: IOHEXOL 300 MG/ML 100ML BOTTLE IJ ONE (08:26)
--- NOTE | 2025-01-29 10:40 | DVH ---
Indication: eval DVT Technique: CT axial images of the pelvis are obtained with intravenous contrast. Coronal and sagitta l reformats were obtained. Radiation Dose Information: CTDI volume is 12.65 mGy. Dose-length product is 586 mGy*cm Comparison: None FINDINGS: No identifiable thrombus within the imaged portion of the infrarenal IVC. The bilateral iliac veins d o not demonstrate evidence for thrombosis. There is thrombus within the right common femoral, superfi cial femoral and deep femoral veins. Occlusive thrombus within the left common femoral vein extending into the left great saphenous vein, left superficial femoral vein. Bilateral nephrostomy tubes. No significant hydronephrosis. Moderate volume stool within the colon. R ectal wall thickening, mucosal hyperemia and surrounding stranding. Presacral edema. Left colostomy. Tract between the skin surface and bladder containing fluid measuring 4.8 x 4.1 cm. Bladder is not a dequately characterized. Large right peroneal/medial thigh region complex collection containing gas foci and fluid components measuring 6.1 x 10.4 cm. There is erosion of the right pubic ramus, right i nferior pubic ramus. Possible developing erosion of the left pubic ramus. Destructive changes of the right iliac bone measuring up to 6.1 cm. Surrounding collection measuring 6.1 x 6.5 cm. Soft tissue edema / anasarca. IMPRESSION: No identifiable thrombus within the imaged portion of the infrarenal IVC. The bilateral iliac veins d o not demonstrate evidence for thrombosis. There is deep vein thrombus within the right common femora l, superficial femoral and deep femoral veins. Occlusive deep thrombus within the left common femoral vein extending into the left great saphenous vein, left superficial femoral vein. Tract between the skin surface and bladder containing fluid measuring 4.8 x 4.1 cm. Correlate clinic ally. Large right peroneal/medial thigh region complex collection containing gas foci and fluid components measuring 6.1 x 10.4 cm. Correlate for necrotic collections, infected collections. There is associat ed erosion of the right pubic ramus, right inferior pubic ramus which could be secondary to malignanc y, osteomyelitis. Destructive changes of the right iliac bone measuring up to 6.1 cm. Surrounding collection measuring 6.1 x 6.5 cm. Suspect metastases Other findings as described.
[2025-01-29] MEDS ORDERED: VANCOMYCIN PER PHARMACY 0 MG IV SCH (11:00)
--- NOTE | 2025-01-29 11:04 | DVHPN2 ---
Subjective Seen and examined at bedside, reviewed CT Pelvis. Patient has a history of Vulvular cancer and now comes with DVT and Right thigh fluid collection vs Osteo. Will get Ortho eval. Changes from previous H/P or p: No Changes Objective Vitals Vital Signs Date Time Temp Pulse Resp B/P (MAP) Pulse Ox O2 Delivery O2 Flow Rate FiO2 01/29/25 09:38 101/65 01/29/25 09:03 97.8 72 18 97 97.8 01/29/25 00:13 Room Air* 0 21 Intake/Output Intake and Output 01/29/25 07:00 Intake Total 1100 ml Output Total 100 ml Balance 1000 ml Intake Oral 400 ml IV Total 700 ml Output Urine Total 100 ml # Voids 1 General Appearance: Alert, Oriented X3, Cooperative HEENT: Atraumatic Lungs: Clear to auscultation Cardiovascular: Regular rate, Normal S1, Normal S2 Abdomen: Normal bowel sounds, Other (Urostomy and Colostomy) Rectal: Deferred Extremities: Other (Right thigh and leg swelling) Skin: Other (See nursing notes) Psych/Mental Status: Mental status NL Medications Current Medications Medications Dose Ordered Sig/Primitivo Route Start Time Stop Time Status Last Admin Dose Admin Amlodipine Besylate 5 mg DAILY PO 01/29/25 10:00 Pantoprazole Sodium 40 mg DAILY@0600 PO 01/29/25 06:00 01/29/25 05:07 40 MG Acetaminophen/ Hydrocodone Bitart 1 tab Q4HP PRN PO 01/28/25 20:00 01/29/25 09:32 1 TAB Ondansetron HCl 4 mg Q4HP PRN IV 01/28/25 20:00 Acetaminophen 650 mg Q6HP PRN PO 01/28/25 20:00 Trazodone HCl 150 mg HS PO 01/29/25 22:00 Heparin Sodium/ Dextrose 250 ml @ 10 mls/hr Q24H IV 01/29/25 06:30 01/29/25 06:33 10 MLS/HR Laboratory Results Laboratory Tests 01/28/25 20:04 01/29/25 04:28 Chemistry Test 01/28/25 14:28 01/29/25 04:28 Calcium Level 9.6 mg/dL (8.7-10.4) 9.5 mg/dL (8.7-10.4) Coagulation Test 01/28/25 14:28 01/28/25 20:04 01/29/25 04:28 Prothrombin Time 11.0 sec (9.3-11.8) 10.9 sec (9.3-11.8) 11.2 sec (9.3-11.8) Prothrombin Time INR 1.04 (0.9-1.15) 1.03 (0.9-1.15) 1.06 (0.9-1.15) Activated Partial Thromboplast Time 28.0 SEC (24.5-34.5) 24.8 SEC (24.5-34.5) 80.6 SEC (24.5-34.5) *H Cardiac Markers Test 01/28/25 14:28 B-Type Natriuretic Peptide 51.86 pg/mL (0-100) Urinalysis Test 01/28/25 16:25 Urine Color Colorless (Yellow) Urine Clarity Turbid (Clear) H Urine pH 5.5 (5.0-9.0) Urine Specific [place] 1.014 (1.001-1.035) Urine Protein 1+ (Negative) H Urine Ketones Negative (Negative) Urine Blood 3+ /uL (Negative) H Urine Nitrite 2+ (Negative) H Urine Bilirubin Negative (Negative) Urine Urobilinogen Normal mg/dL (Negative) Urine Leukocyte Esterase 3+ /uL (Negative) Urine RBC 128 /hpf (0 - 4) Urine WBC Clumps Present /hpf (None Seen) Urine Microscopic WBC 127 /HPF (0-5) H Urine Squamous Epithelial Cells None seen /hpf (<5) Urine Bacteria Few /hpf (None Seen) H Urine Mucus Few (None Seen) Urine Yeast (Budding) Few /hpf (None Seen) Urine Glucose Normal mg/dL (Normal) Assessment/Plan Assessment/Plan # Right DVT - On Heparin Drip # Right thigh collection vs Osteo - IV Abx - Ortho Cx # Vulvuar Cancer - Cont outpatient followup with [facility] Edwin # Anemia - FOBT Critical care time 40 mins Plan discussed with: Patient My Orders Orders - BETTINA DUARTE MD Procedure Category Date Status Time Comprehensive LAB 01/29/25 Transmitted Metabolic Panel 10:56 Lactate Dehydrogenase LAB 01/29/25 Transmitted 10:56 Stool Occult Blood LAB 01/29/25 Transmitted 10:56 Bisacodyl Ec Tablet PHA 01/29/25 Transmitted (Dulcolax Ec Tablet) 11:00 * Orthopedic Consult CONS 01/29/25 Transmitted 10:56 Vancomycin PHA 01/29/25 Transmitted 11:00 Cefepime 2 Gm PHA 01/29/25 Transmitted 11:00 Cefepime 1 Gm PHA 01/29/25 Transmitted 14:00 Basic Metabolic Panel LAB 01/30/25 Verified 04:00 Complete Blood Count LAB 01/30/25 Verified 04:00 Magnesium LAB 01/30/25 Verified 04:00 Date of Service: Jan 29, 2025 Billing Provider: BETTINA DUARTE MD Common Visit Codes: [id number] CARE 30-74 MIN BETTINA DUARTE MD Jan 29, 2025 11:04
[2025-01-29] MEDS: MORPHINE SULFATE INJ 2 MG/ml SYRG IV PRN (12:57)
[2025-01-29] MEDS: CEFEPIME 2GM/50ML NS 50 ML IV ONE (12:58)
[2025-01-29] MEDS: BISACODYL 5 MG EC TAB PO ONE (12:59)
[2025-01-29] MEDS: VANCOMYCIN 1.5GM/250ML 250 ML IV ONE (12:59)
[2025-01-29 13:15] LABS: INR 1.06 (0.9-1.15); Partial Thromboplastin Time 31.6 SEC (24.5-34.5); Prothrombin Time 11.2 sec (9.3-11.8)
--- NOTE | 2025-01-29 13:47 | CONS ---
Pharmacy Clinical Information: @11:54, aPTT 31.6. Called and asked RALPH Huynh, she said the heparin was unh ooked for about 1h30' for a CT. Patient is now resumed with the same rate 1000 units/hr Will re-assess at next aPTT @1900 KRYSTAL JEONG PHY RESIDENT Jan 29, 2025 13:47
[2025-01-29 14:05] LABS: Alanine Aminotransferase 10 U/L (7-40); Albumin 3.2 g/dL (3.2-4.8); Alkaline Phosphatase 63 U/L (46-116); Anion Gap 13 (5-15); BUN/Creatinine Ratio 15.2 (10.0-20.0); Blood Urea Nitrogen 14 mg/dL (9-23); Calcium 9.3 mg/dL (8.7-10.4); Carbon Dioxide 25 mmol/L (20-31); Chloride 104 mmol/L (98-107); Glucose 96 mg/dL (74-106); Potassium 4.3 mmol/L (3.5-5.1); Sodium 142 mmol/L (136-145); Total Protein 5.9 g/dL (5.7-8.2)
[2025-01-29 14:06] LABS: Bilirubin, Total < 0.2 mg/dL (0.2-1.0)
--- NOTE | 2025-01-29 15:30 | DVHINCON2 ---
Consult Note Consult Consult Note History The patient is a 59-year-old female currently admitted for management of deep vein thrombosis (DVT) left LE under hospitalist service. She has a history of valvular cancer and is followed by her oncologist, Dr. Muse, at [facility]. Orthopedic surgery was consulted after CT pelvis with contrast demonstrated a large right peroneal/medial thigh complex collection with gas foci and fluid, associated destructive changes of the right iliac bone and pubic rami. Findings are concerning for either infected/necrotic collection versus malignant/metasta tic involvement. Patients oncologic history and bone changes raise suspicion for malignant etiology; however, the presence of gas also raises concern for superimposed infection. --- Imaging CT Pelvis w/ contrast (01/29/25): Thrombus in right common femoral/superficial femoral veins. Complex right medial thigh/pelvic collection, 6.1 10.4 cm, containing gas and fluid. Associated bony erosive changes of right iliac bone and pubic rami. Impression: necrotic/infected collection vs malignancy/metastasis. --- Assessment 59-year-old female with history of malignancy and current inpatient DVT, now with large pelvic/thigh collection and bony destruction. Differential: Necrotic tumor with superimposed infection, abscess/osteomyelitis, metastatic lesion. Risk: Sepsis, progression of malignancy, pathologic fracture, further DVT propagation. --- Recommendations 1. Further Imaging: MRI pelvis and right thigh with and without contrast for better characterization of soft tissue and bony involvement. 2. Specialist Involvement:Need Orthopedic Oncology referral for advanced evaluation and management of pelvic/bony lesion. Oncology consult (Dr. Muse at [facility]) to coordinate care. Infectious Disease for antibiotic management given risk of necrotic/infected collection. Vascular Medicine already managing DVT. 3. Level of Care: Patient will benefit from transfer to a higher-level facility with orthopedic oncology services for definitive management, including possible biopsy, debridement, or resection. Please reconsult Ortho as needed. Plan discussed with: Patient (bed side nurse) Visit Coding Surgery Date of Service if different f: Jan 29, 2025 Billing Provider: OSMIN JOYCE Surgery Visit Codes: [id number] - INP CONSULT <55 MIN OSMIN JOYCE Jan 29, 2025 15:30
[2025-01-29 19:48] LABS: INR 1.06 (0.9-1.15); Partial Thromboplastin Time 54.1 SEC (24.5-34.5); Prothrombin Time 11.2 sec (9.3-11.8)
[2025-01-29] MEDS: VANCOMYCIN 750MG KIT 100 ML IV SCH (20:21)
[2025-01-29] MEDS: CEFEPIME 1GM/50ML 50 ML IV SCH (21:43)
[2025-01-30] VITALS (7 sets, daily range): BP systolic 91–116; BP diastolic 49–68; PULSE 63–88; RESP 16–18; TEMP 97.7–98.3; O2SAT 90–99
[2025-01-30 02:41] LABS: Hematocrit 25.8 % (36.0-46.0); Hemoglobin 8.2 g/dL (12.2-16.2); Mean Corpuscular Hemoglobin 28.4 pg (28.0-32.0); Mean Corpuscular Volume 89.3 fL (80.0-100.0); Nucleated Red Blood Cells % 0.1 %
[2025-01-30 02:50] LABS: Alkaline Phosphatase 56 U/L (46-116); Anion Gap 8 (5-15); BUN/Creatinine Ratio 16.7 (10.0-20.0); Blood Urea Nitrogen 15 mg/dL (9-23); Carbon Dioxide 28 mmol/L (20-31); Chloride 104 mmol/L (98-107); Potassium 3.9 mmol/L (3.5-5.1); Sodium 140 mmol/L (136-145)
[2025-01-30 03:00] LABS: Alanine Aminotransferase < 9 U/L (7-40); Albumin 3.0 g/dL (3.2-4.8); Bilirubin, Total < 0.2 mg/dL (0.2-1.0); Calcium 8.6 mg/dL (8.7-10.4); Glucose 111 mg/dL (74-106); Magnesium 1.4 mg/dL (1.6-2.6); Total Protein 5.4 g/dL (5.7-8.2)
[2025-01-30 03:01] LABS: INR 1.03 (0.9-1.15); Partial Thromboplastin Time 41.9 SEC (24.5-34.5); Prothrombin Time 10.9 sec (9.3-11.8)
--- NOTE | 2025-01-30 04:29 | CONS ---
Pharmacy Clinical Information: PTT=41.9 @ 0140, SUBTHERAPEUTIC, INCREASE TO 1200 UNITS/HR, NEXT PTT @ 1100. CHAVEZ DEE Jan 30, 2025 04:29
[2025-01-30] MEDS: HEPARIN DRIP/D5W 100UNITS/ML 250 ML IV SCH ×2 (04:46→19:11)
--- NOTE | 2025-01-30 10:43 | DVHDS2 ---
Discharge Summary Date of Admission Jan 28, 2025 at 19:48 Date of Discharge: Feb 02, 2025 Admitting Diagnosis Right DVT Labs/Diagnostic Data: Laboratory Results Test 01/30/25 01:40 01/29/25 04:28 01/28/25 16:25 01/28/25 14:28 White Blood Count 6.1 10^3/uL (4.4-10.8) Red Blood Count 2.88 10^6/uL (4.0-5.20) Hemoglobin 8.2 g/dL (12.2-16.2) Hematocrit 25.8 % (36.0-46.0) Mean Corpuscular Volume 89.3 fL (80.0-100.0) Mean Corpuscular Hemoglobin 28.4 pg (28.0-32.0) Mean Corpuscular Hemoglobin Concent 31.8 g/dL (32.0-36.0) Red Cell Distribution Width 17.1 % (11.8-14.3) Platelet Count 254 10^3/uL (140-450) Mean Platelet Volume 7.4 fL (6.9-10.8) Neutrophils (%) (Auto) 80.5 % (37.0-80.0) Lymphocytes (%) (Auto) 8.1 % (10.0-50.0) Monocytes (%) (Auto) 6.3 % (0.0-12.0) Eosinophils (%) (Auto) 4.9 % (0.0-7.0) Basophils (%) (Auto) 0.2 % (0.0-2.0) Neutrophils # (Auto) 4.9 10 ^3/uL (1.6-8.6) Lymphocytes # (Auto) 0.5 10 ^3/uL (0.4-5.4) Monocytes # (Auto) 0.4 10 ^3/uL (0-1.3) Eosinophils # (Auto) 0.3 10 ^3/uL (0-0.8) Basophils # (Auto) 0 10 ^3/uL (0-0.2) Nucleated Red Blood Cells 0.1 % Prothrombin Time 10.9 sec (9.3-11.8) Prothrombin Time INR 1.03 (0.9-1.15) Activated Partial Thromboplast Time 41.9 SEC (24.5-34.5) Sodium Level 140 mmol/L (136-145) Potassium Level 3.9 mmol/L (3.5-5.1) Chloride Level 104 mmol/L (98-107) Carbon Dioxide Level 28 mmol/L (20-31) Anion Gap 8 (5-15) Blood Urea Nitrogen 15 mg/dL (9-23) Creatinine 0.90 mg/dL (0.550-1.02) Glomerular Filtration Rate Calc 73 mL/min (>90) BUN/Creatinine Ratio 16.7 (10.0-20.0) Serum Glucose 111 mg/dL (74-106) Calcium Level 8.6 mg/dL (8.7-10.4) Magnesium Level 1.4 mg/dL (1.6-2.6) Total Bilirubin < 0.2 mg/dL (0.2-1.0) Aspartate Amino Transferase (AST) 14 U/L (13-40) Alanine Aminotransferase (ALT) < 9 U/L (7-40) Alkaline Phosphatase 56 U/L (46-116) Total Protein 5.4 g/dL (5.7-8.2) Albumin 3.0 g/dL (3.2-4.8) Lactate Dehydrogenase 185 U/L (120-246) Urine Color Colorless (Yellow) Urine Clarity Turbid (Clear) Urine pH 5.5 (5.0-9.0) Urine Specific [place] 1.014 (1.001-1.035) Urine Protein 1+ (Negative) Urine Ketones Negative (Negative) Urine Blood 3+ /uL (Negative) Urine Nitrite 2+ (Negative) Urine Bilirubin Negative (Negative) Urine Urobilinogen Normal mg/dL (Negative) Urine Leukocyte Esterase 3+ /uL (Negative) Urine RBC 128 /hpf (0 - 4) Urine WBC Clumps Present /hpf (None Seen) Urine Microscopic WBC 127 /HPF (0-5) Urine Squamous Epithelial Cells None seen /hpf (<5) Urine Bacteria Few /hpf (None Seen) Urine Mucus Few (None Seen) Urine Yeast (Budding) Few /hpf (None Seen) Urine Glucose Normal mg/dL (Normal) Lactic Acid Level 1.6 mmol/L (0.4-2.0) B-Type Natriuretic Peptide 51.86 pg/mL (0-100) Other Laboratory Tests 01/30/25 01:40 Brief Hx & Hospital Course: The patient is a 59-year-old female currently admitted for management of deep vein thrombosis (DVT) left LE under hospitalist service. She has a history of valvular cancer and is followed by her oncologist, Dr. Muse, at [facility]. Orthopedic surgery was consulted after CT pelvis with contrast demonstrated a large right peroneal/medial thigh complex collection with gas foci and fluid, associated destructive changes of the right iliac bone and pubic rami. Findings are concerning for either infected/necrotic collection versus malignant/metastatic involvement. Patients oncologic history and bone changes raise suspicion for malignant etiology; however, the presence of gas also raises concern for superimposed infection. Patient also has a right lower extremity DVT, on Heparin drip. Patient will need to be transferred to higher level of care for oncology services. Operations or Procedures Indication: eval DVT Technique: CT axial images of the pelvis are obtained with intravenous contrast. Coronal and sagittal reformats were obtained. Radiation Dose Information: CTDI volume is 12.65 mGy. Dose-length product is 586 mGy*cm Comparison: None FINDINGS: No identifiable thrombus within the imaged portion of the infrarenal IVC. The bilateral iliac veins do not demonstrate evidence for thrombosis. There is thrombus within the right common femoral, superficial femoral and deep femoral veins. Occlusive thrombus within the left common femoral vein extending into the left great saphenous vein, left superficial femoral vein. Bilateral nephrostomy tubes. No significant hydronephrosis. Moderate volume stool within the colon. Rectal wall thickening, mucosal hyperemia and surrounding stranding. Presacral edema. Left colostomy. Tract between the skin surface and bladder containing fluid measuring 4.8 x 4.1 cm. Bladder is not adequately characterized. Large right peroneal/medial thigh region complex collection containing gas foci and fluid components measuring 6.1 x 10.4 cm. There is erosion of the right pubic ramus, right inferior pubic ramus. Possible developing erosion of the left pubic ramus. Destructive changes of the right iliac bone measuring up to 6.1 cm. Surrounding collection measuring 6.1 x 6.5 cm. Soft tissue edema / anasarca. IMPRESSION: No identifiable thrombus within the imaged portion of the infrarenal IVC. The bilateral iliac veins do not demonstrate evidence for thrombosis. There is deep vein thrombus within the right common femoral, superficial femoral and deep femoral veins. Occlusive deep thrombus within the left common femoral vein extending into the left great saphenous vein, left superficial femoral vein. Tract between the skin surface and bladder containing fluid measuring 4.8 x 4.1 cm. Correlate clinically. Large right peroneal/medial thigh region complex collection containing gas foci and fluid components measuring 6.1 x 10.4 cm. Correlate for necrotic collections, infected collections. There is associated erosion of the right pubic ramus, right inferior pubic ramus which could be secondary to malignancy, osteomyelitis. Destructive changes of the right iliac bone measuring up to 6.1 cm. Surrounding collection measuring 6.1 x 6.5 cm. Suspect metastases Other findings as described. Left lower extremity venous duplex Clinical History: LLE edema Comparison: None Findings: Duplex Doppler evaluation of the deep venous system of the left lower extremity from the common femoral vein to the popliteal vein including color Doppler and spectral/pulsed waveform analysis was performed. Extensive thrombus from the left common femoral vein to the posterior tibial vein Impression: Extensive thrombus from the left com Critical Result: DVT Findings discussed withDr. Herrera , at 01/28/2025 02:29 PM, and acknowledged receipt and understanding of the findings. .. mon femoral vein to the posterior tibial vein If clinical concern/symptoms persist or worsen, short-interval follow-up study is suggested. Condition at Discharge: Poor Final Diagnosis/Problems List # Right DVT - On Heparin Drip # Right thigh collection vs Osteo - IV Abx - Ortho Oncology for possible Mets # Complicated Cystitis # Vulvuar Cancer - Cont outpatient followup with [facility] Edwin # Anemia - FOBT Discharge Disposition: Acute Care Facility Discharge Instruct/Medications Diet: Regular Activity: Light activity Follow Up/Referral: [facility] Scheduled Acetaminophen (Tylenol), 650 MG PO QID Cephalexin Monohydrate (Cephalexin), 1 TAB PO BID Gabapentin (Once-Daily) (Gabapentin), 300 MG PO TID Morphine Sulfate (Morphine Sulfate), 1 TAB PO BID Pantoprazole Sodium Sesquihydr (Protonix), 40 MG PO BID Sucralfate (Carafate Susp), 10 ML PO QID Discharge Statement: "Patient was advised to return to the ER or call 911 if any headaches, dizziness, shortness of breath, chest pain, abdominal pain, bleeding, fevers, or worsening of medical condition. Patient was counseled about treatment plan, medications, possible side effects, patientverbalized understanding. All questions were answered to the best of my ability. This discharge took greater then 30 minutes in planning, reviewing documentation, counseling the patient, and discussing with other team members." ASSESSMENT ASSESSMENT Assessment Date of Service: Jan 30, 2025 Billing Provider: BETTINA DUARTE MD Common Visit Codes: [id number] DISCH DAY >30min BETTINA DUARTE MD Jan 30, 2025 10:43
[2025-01-30 10:58] LABS: Hepatitis B Surface Antigen Negative (Negative); Hepatitis C Antibody Negative (Negative)
[2025-01-30 12:17] LABS: INR 1.11 (0.9-1.15); Partial Thromboplastin Time 68.9 SEC (24.5-34.5); Prothrombin Time 11.6 sec (9.3-11.8)
[2025-01-30] MEDS: MAGNESIUM OXIDE 400 MG TAB PO ONE (14:40)
[2025-01-30 18:03] LABS: Prothrombin Time 11.5 sec (9.3-11.8)
[2025-01-30 18:04] LABS: INR 1.09 (0.9-1.15)
[2025-01-30 18:06] LABS: Partial Thromboplastin Time 84.0 SEC (24.5-34.5)
--- NOTE | 2025-01-30 18:20 | CONS ---
Pharmacy Clinical Information: DECREASED HEPARIN RATE FROM 12ML/HR TO 1000 UNITS/HR OR 10ML/HR SINCE APTT = 84 @1721 ON 01/30 PER RX PROTOCOL. NEXT APTT AWA @0030 ON 01/31 CORINA ROSAS AWARE AND REPEATED ORDER BACK TO RUN HEPARIN RATE @10 ML/HR MAHIN BRYANT PHARMACIST Jan 30, 2025 18:20
[2025-01-30] MEDS: MAGNESIUM OXIDE 400 MG TAB PO SCH (22:21)
[2025-01-31] VITALS (8 sets, daily range): BP systolic 106–119; BP diastolic 56–74; PULSE 67–94; RESP 15–18; TEMP 98–98.5; O2SAT 90–95
[2025-01-31 01:03] LABS: INR 1.11 (0.9-1.15); Partial Thromboplastin Time 60.4 SEC (24.5-34.5); Prothrombin Time 11.6 sec (9.3-11.8)
[2025-01-31 08:03] LABS: INR 1.11 (0.9-1.15); Partial Thromboplastin Time 54.1 SEC (24.5-34.5); Prothrombin Time 11.6 sec (9.3-11.8)
[2025-01-31 08:05] LABS: Hematocrit 25.5 % (36.0-46.0); Hemoglobin 8.3 g/dL (12.2-16.2); Mean Corpuscular Hemoglobin 28.6 pg (28.0-32.0); Mean Corpuscular Volume 87.8 fL (80.0-100.0); Nucleated Red Blood Cells % 0.1 %
--- NOTE | 2025-01-31 12:53 | DVHPN2 ---
Reviewed: Care Plan, H&P, Labs, Medications, Previous Orders, Radiology Changes from previous H/P or p: No Changes Objective Vitals Vital Signs Date Time Temp Pulse Resp B/P (MAP) Pulse Ox O2 Delivery O2 Flow Rate FiO2 01/31/25 12:13 98.2 67 15 117/58 (77) 90 98.2 01/31/25 08:00 Room Air* 0 21 Intake/Output Intake and Output 01/31/25 07:00 Intake Total 2570 ml Output Total 2575 ml Balance -5 ml Intake Oral 2420 ml IV Total 150 ml Output Urine Total 2425 ml Stool Total 150 ml General Appearance: Alert, Oriented X3, Cooperative HEENT: Atraumatic Lungs: Clear to auscultation Cardiovascular: Regular rate, Normal S1, Normal S2 Abdomen: Normal bowel sounds, Other (Urostomy and Colostomy) Rectal: Deferred Extremities: Other (Right thigh and leg swelling) Skin: Other (See nursing notes) Psych/Mental Status: Mental status NL Medications Current Medications Medications Dose Ordered Sig/Primitivo Route Start Time Stop Time Status Last Admin Dose Admin Amlodipine Besylate 5 mg DAILY PO 01/29/25 10:00 Pantoprazole Sodium 40 mg DAILY@0600 PO 01/29/25 06:00 01/31/25 05:47 40 MG Acetaminophen/ Hydrocodone Bitart 1 tab Q4HP PRN PO 01/28/25 20:00 01/31/25 11:21 1 TAB Ondansetron HCl 4 mg Q4HP PRN IV 01/28/25 20:00 Acetaminophen 650 mg Q6HP PRN PO 01/28/25 20:00 Trazodone HCl 150 mg HS PO 01/29/25 22:00 01/30/25 22:21 150 MG Vancomycin HCl 0 ml @ 0 mls/hr UD IV 01/29/25 11:00 Cefepime HCl 50 ml @ 12.5 mls/hr Q8HR IV 01/29/25 22:00 01/31/25 05:47 12.5 MLS/HR Morphine Sulfate 2 mg Q4HPRN PRN IV 01/29/25 11:30 01/31/25 09:51 2 MG Magnesium Oxide 800 mg BID PO 01/30/25 22:00 01/31/25 09:52 800 MG Heparin Sodium/ Dextrose 250 ml @ 10 mls/hr Q24H IV 01/30/25 18:15 01/30/25 19:11 10 MLS/HR Vancomycin HCl 100 ml @ 100 mls/hr Q12H IV 01/31/25 20:00 Laboratory Results Laboratory Tests 01/30/25 01:40 01/31/25 06:43 Coagulation Test 01/30/25 17:21 01/31/25 00:40 01/31/25 06:43 Prothrombin Time 11.5 sec (9.3-11.8) 11.6 sec (9.3-11.8) 11.6 sec (9.3-11.8) Prothrombin Time INR 1.09 (0.9-1.15) 1.11 (0.9-1.15) 1.11 (0.9-1.15) Activated Partial Thromboplast Time 84.0 SEC (24.5-34.5) *H 60.4 SEC (24.5-34.5) H 54.1 SEC (24.5-34.5) H Urinalysis Test 01/28/25 16:25 Urine Color Colorless (Yellow) Urine Clarity Turbid (Clear) H Urine pH 5.5 (5.0-9.0) Urine Specific [place] 1.014 (1.001-1.035) Urine Protein 1+ (Negative) H Urine Ketones Negative (Negative) Urine Blood 3+ /uL (Negative) H Urine Nitrite 2+ (Negative) H Urine Bilirubin Negative (Negative) Urine Urobilinogen Normal mg/dL (Negative) Urine Leukocyte Esterase 3+ /uL (Negative) Urine RBC 128 /hpf (0 - 4) Urine WBC Clumps Present /hpf (None Seen) Urine Microscopic WBC 127 /HPF (0-5) H Urine Squamous Epithelial Cells None seen /hpf (<5) Urine Bacteria Few /hpf (None Seen) H Urine Mucus Few (None Seen) Urine Yeast (Budding) Few /hpf (None Seen) Urine Glucose Normal mg/dL (Normal) Microbiology Microbiology Date/Time Source Procedure Growth Status 01/28/25 14:28 Blood Blood Culture - Preliminary NO GROWTH AFTER 48 HOURS OF INCUBATION. Resulted Labs and/or images reviewed: Labs reviewed by me, Image(s) reviewed by me Assessment/Plan Assessment/Plan Covering for Dr. Vásquez # Right DVT - On Heparin Drip # Right thigh collection vs Osteo - IV Abx - Ortho Oncology for possible Mets # Complicated Cystitis # Vulvuar Cancer - Cont outpatient followup with [facility] Edwin # Anemia - FOBT Waiting for transfer to [facility] for vulvar cancer, oncology social worker working with her insurance Plan discussed with: Patient Date of Service: Jan 31, 2025 Billing Provider: SAMMY FRANCO MD Common Visit Codes: [id number] INP/OBS CARE(HIGH) SAMMY FRANCO MD Jan 31, 2025 12:53
[2025-01-31 15:09] LABS: INR 1.11 (0.9-1.15); Partial Thromboplastin Time 64.4 SEC (24.5-34.5); Prothrombin Time 11.6 sec (9.3-11.8)
--- NOTE | 2025-01-31 15:30 | CONS ---
Pharmacy Clinical Information: HEPARIN UPDATE PER DVT PROTOCOL: APTT result of 64.4 received from 1420 draw. Please continue heparin at 1000 units per hour (10mL/hr). This was 3rd APTT with no change; confirmed with RALPH Hager. Next APTT/PT scheduled for 02/01/25 @1420 per PRx protocol. RIP CHAVEZ PHARMACIST Jan 31, 2025 15:30
[2025-01-31] MEDS: VANCOMYCIN 500mg/100mL 100 ML IV SCH (20:00)
[2025-02-01] VITALS (8 sets, daily range): BP systolic 114–128; BP diastolic 63–78; PULSE 90–96; RESP 17–97; TEMP 97.5–98.2; O2SAT 94–98
[2025-02-01 07:11] LABS: Hematocrit 26.7 % (36.0-46.0); Hemoglobin 8.5 g/dL (12.2-16.2); Mean Corpuscular Hemoglobin 28.0 pg (28.0-32.0); Mean Corpuscular Volume 88.4 fL (80.0-100.0); Nucleated Red Blood Cells % 0.0 %
[2025-02-01 09:12] LABS: Hematocrit 28.0 % (36.0-46.0); Hemoglobin 8.8 g/dL (12.2-16.2); Mean Corpuscular Hemoglobin 28.0 pg (28.0-32.0); Mean Corpuscular Volume 88.4 fL (80.0-100.0); Nucleated Red Blood Cells % 0.1 %
[2025-02-01 09:25] LABS: INR 1.07 (0.9-1.15); Partial Thromboplastin Time 28.2 SEC (24.5-34.5); Prothrombin Time 11.3 sec (9.3-11.8)
--- NOTE | 2025-02-01 09:52 | CONS ---
Pharmacy Clinical Information: PER RN, TRACE RN TURNED OFF HEPARIN DRIP ALL NIGHT AM APTT = 28.2 BOLUS 5000 UNITS IV RE-START DRIP AT RATE 1000 UNITS/HR APTT DRAW SCHEDULED AT 1600 PER RX PROTOCOL LIZ IRVIN PHARMACIST Feb 01, 2025 09:52
[2025-02-01] MEDS: HEPARIN SODIUM (PORCINE) 5000 UNITS/ML 1ML VIAL IV ONE ×2 (10:03→19:08)
--- NOTE | 2025-02-01 10:56 | DVHPN2 ---
Reviewed: Care Plan, H&P, Labs, Medications, Previous Orders, Radiology Changes from previous H/P or p: No Changes Objective Vitals Vital Signs Date Time Temp Pulse Resp B/P (MAP) Pulse Ox O2 Delivery O2 Flow Rate FiO2 02/01/25 09:01 128/69 02/01/25 09:00 97.6 95 18 98 97.6 02/01/25 08:09 Room Air* 0 21 Intake/Output Intake and Output 02/01/25 07:00 Intake Total 2400 ml Output Total 750 ml Balance 1650 ml Intake Oral 2150 ml IV Total 250 ml Output Urine Total 750 ml General Appearance: Alert, Oriented X3, Cooperative HEENT: Atraumatic Lungs: Clear to auscultation Cardiovascular: Regular rate, Normal S1, Normal S2 Abdomen: Normal bowel sounds, Other (Urostomy and Colostomy) Rectal: Deferred Extremities: Other (Right thigh and leg swelling) Skin: Other (See nursing notes) Psych/Mental Status: Mental status NL Medications Current Medications Medications Dose Ordered Sig/Primitivo Route Start Time Stop Time Status Last Admin Dose Admin Amlodipine Besylate 5 mg DAILY PO 01/29/25 10:00 02/01/25 09:01 5 MG Pantoprazole Sodium 40 mg DAILY@0600 PO 01/29/25 06:00 02/01/25 05:39 40 MG Acetaminophen/ Hydrocodone Bitart 1 tab Q4HP PRN PO 01/28/25 20:00 02/01/25 05:39 1 TAB Ondansetron HCl 4 mg Q4HP PRN IV 01/28/25 20:00 Acetaminophen 650 mg Q6HP PRN PO 01/28/25 20:00 Trazodone HCl 150 mg HS PO 01/29/25 22:00 01/30/25 22:21 150 MG Vancomycin HCl 0 ml @ 0 mls/hr UD IV 01/29/25 11:00 Cefepime HCl 50 ml @ 12.5 mls/hr Q8HR IV 01/29/25 22:00 02/01/25 05:40 12.5 MLS/HR Morphine Sulfate 2 mg Q4HPRN PRN IV 01/29/25 11:30 02/01/25 07:46 2 MG Magnesium Oxide 800 mg BID PO 01/30/25 22:00 02/01/25 09:00 800 MG Heparin Sodium/ Dextrose 250 ml @ 10 mls/hr Q24H IV 01/30/25 18:15 02/01/25 10:05 10 MLS/HR Vancomycin HCl 100 ml @ 100 mls/hr Q12H IV 01/31/25 20:00 02/01/25 08:00 100 MLS/HR Laboratory Results Laboratory Tests 01/30/25 01:40 02/01/25 05:48 02/01/25 08:43 Coagulation Test 01/31/25 14:20 02/01/25 08:43 Prothrombin Time 11.6 sec (9.3-11.8) 11.3 sec (9.3-11.8) Prothrombin Time INR 1.11 (0.9-1.15) 1.07 (0.9-1.15) Activated Partial Thromboplast Time 64.4 SEC (24.5-34.5) H 28.2 SEC (24.5-34.5) Urinalysis Test 01/28/25 16:25 Urine Color Colorless (Yellow) Urine Clarity Turbid (Clear) H Urine pH 5.5 (5.0-9.0) Urine Specific [place] 1.014 (1.001-1.035) Urine Protein 1+ (Negative) H Urine Ketones Negative (Negative) Urine Blood 3+ /uL (Negative) H Urine Nitrite 2+ (Negative) H Urine Bilirubin Negative (Negative) Urine Urobilinogen Normal mg/dL (Negative) Urine Leukocyte Esterase 3+ /uL (Negative) Urine RBC 128 /hpf (0 - 4) Urine WBC Clumps Present /hpf (None Seen) Urine Microscopic WBC 127 /HPF (0-5) H Urine Squamous Epithelial Cells None seen /hpf (<5) Urine Bacteria Few /hpf (None Seen) H Urine Mucus Few (None Seen) Urine Yeast (Budding) Few /hpf (None Seen) Urine Glucose Normal mg/dL (Normal) Microbiology Microbiology Date/Time Source Procedure Growth Status 01/28/25 14:28 Blood Blood Culture - Preliminary NO GROWTH AFTER 72 HOURS OF INCUBATION. Resulted Labs and/or images reviewed: Labs reviewed by me, Image(s) reviewed by me Assessment/Plan Assessment/Plan Covering for Dr. Vásquez # Right DVT - On Heparin Drip # Right thigh collection vs Osteo - IV Abx - Ortho Oncology for possible Mets # Complicated Cystitis # Vulvuar Cancer - Cont outpatient followup with [facility] Edwin # Anemia - FOBT Waiting for transfer to [facility] for vulvar cancer, social contact worker working with her insurance Patient says she is going to call [employer] Sunday morning and pay the primum and make the insurance active Plan discussed with: Patient Date of Service: Feb 01, 2025 Billing Provider: SAMMY FRANCO MD Common Visit Codes: [id number] INP/OBS CARE(HIGH) SAMMY FRANCO MD Feb 01, 2025 10:56
[2025-02-01 18:35] LABS: INR 1.08 (0.9-1.15); Partial Thromboplastin Time 33.6 SEC (24.5-34.5); Prothrombin Time 11.4 sec (9.3-11.8)
--- NOTE | 2025-02-01 18:43 | CONS ---
Pharmacy Clinical Information: PLEASE BOLUS 5000 UNITS HEPARIN IV AND INCREASE HEPARIN DRIP RATE FROM 1000 UNITS/HR TO 1300 UNITS/HR PER APTT OF 33.6 (SUBTHERAPEUTIC) NEXT APTT DRAW SCHEDULED FOR 02/02 @0100 PER RX PROTOCOL LIZ IRVIN PHARMACIST Feb 01, 2025 18:43
[2025-02-01] MEDS: HEPARIN DRIP/D5W 100UNITS/ML 250 ML IV SCH (19:08)
[2025-02-02] VITALS (8 sets, daily range): BP systolic 101–119; BP diastolic 59–71; PULSE 72–94; RESP 16–19; TEMP 37.2; O2SAT 91–95
[2025-02-02 02:14] LABS: INR 1.07 (0.9-1.15); Partial Thromboplastin Time 50.1 SEC (24.5-34.5); Prothrombin Time 11.3 sec (9.3-11.8)
[2025-02-02] MEDS ORDERED: HEPARIN DRIP/D5W 100UNITS/ML 250 ML IV SCH (06:15)
[2025-02-02] MEDS: HEPARIN DRIP/D5W 100UNITS/ML 250 ML IV SCH (06:40)
[2025-02-02 08:07] LABS: Hematocrit 29.3 % (36.0-46.0); Hemoglobin 9.4 g/dL (12.2-16.2); Mean Corpuscular Hemoglobin 28.1 pg (28.0-32.0); Mean Corpuscular Volume 87.7 fL (80.0-100.0); Nucleated Red Blood Cells % 0.1 %
[2025-02-02 08:24] LABS: INR 1.08 (0.9-1.15); Partial Thromboplastin Time 33.6 SEC (24.5-34.5); Prothrombin Time 11.4 sec (9.3-11.8)
[2025-02-02 10:51] LABS: INR 1.11 (0.9-1.15); Partial Thromboplastin Time 58.7 SEC (24.5-34.5); Prothrombin Time 11.6 sec (9.3-11.8)
--- NOTE | 2025-02-02 11:21 | CONS ---
Pharmacy Clinical Information: HEPARIN DRIP, DVT PROTOCOL RANDOM @1010 APTT 58.7 - NO BOLUS / NO CHANGE HEPARIN WAS INTERRUPTED OVERNIGHT THEREFORE APTT @ 0750 WAS 33.6. HEPARIN WAS DOCUMENTED TO BE STARTED AGAIN @ 0640 THEREFORE A RANDOM WAS DRAWN TO ENSURE A MORE ACCURATE APTT WAS MEASURED. NEXT APTT DRAW SCHEDULED @1240 PER RX PROTOCOL CONFIRMED AND READ BACK WITH GILLIAN CORDOVA [facility] RESIDENT Feb 02, 2025 11:21
--- NOTE | 2025-02-02 13:27 | DVHPN2 ---
Subjective Seen and examined at bedside, awaiting transfer to [facility]. Out of bed to chair needed. Reviewed: Care Plan, H&P, Labs, Medications, Previous Orders, Radiology Changes from previous H/P or p: No Changes Objective Vitals Vital Signs Date Time Temp Pulse Resp B/P (MAP) Pulse Ox O2 Delivery O2 Flow Rate FiO2 02/02/25 09:34 88 16 119/68 02/02/25 09:00 97.6 94 97.6 02/01/25 20:00 Room Air* 0 21 Intake/Output Intake and Output 02/02/25 07:00 Intake Total 1800 ml Balance 1800 ml Intake Oral 1650 ml IV Total 150 ml General Appearance: Alert, Oriented X3, Cooperative HEENT: Atraumatic Lungs: Clear to auscultation Cardiovascular: Regular rate, Normal S1, Normal S2 Abdomen: Normal bowel sounds, Other (Urostomy and Colostomy) Rectal: Deferred Extremities: Other (Right thigh and leg swelling) Skin: Other (See nursing notes) Psych/Mental Status: Mental status NL Medications Current Medications Medications Dose Ordered Sig/Primitivo Route Start Time Stop Time Status Last Admin Dose Admin Amlodipine Besylate 5 mg DAILY PO 01/29/25 10:00 02/02/25 09:04 5 MG Pantoprazole Sodium 40 mg DAILY@0600 PO 01/29/25 06:00 02/02/25 06:11 40 MG Acetaminophen/ Hydrocodone Bitart 1 tab Q4HP PRN PO 01/28/25 20:00 02/02/25 07:58 1 TAB Ondansetron HCl 4 mg Q4HP PRN IV 01/28/25 20:00 Acetaminophen 650 mg Q6HP PRN PO 01/28/25 20:00 Trazodone HCl 150 mg HS PO 01/29/25 22:00 02/01/25 21:26 150 MG Vancomycin HCl 0 ml @ 0 mls/hr UD IV 01/29/25 11:00 Cefepime HCl 50 ml @ 12.5 mls/hr Q8HR IV 01/29/25 22:00 02/02/25 06:11 12.5 MLS/HR Morphine Sulfate 2 mg Q4HPRN PRN IV 01/29/25 11:30 02/02/25 09:04 2 MG Magnesium Oxide 800 mg BID PO 01/30/25 22:00 02/02/25 09:02 800 MG Vancomycin HCl 100 ml @ 100 mls/hr Q12H IV 01/31/25 20:00 02/02/25 08:00 100 MLS/HR Heparin Sodium/ Dextrose 250 ml @ 13 mls/hr [id number] IV 02/02/25 06:30 02/02/25 06:40 13 MLS/HR Laboratory Results Laboratory Tests 01/30/25 01:40 02/02/25 07:17 Coagulation Test 02/01/25 18:09 02/02/25 01:36 02/02/25 07:50 02/02/25 10:10 Prothrombin Time 11.4 sec (9.3-11.8) 11.3 sec (9.3-11.8) 11.4 sec (9.3-11.8) 11.6 sec (9.3-11.8) Prothrombin Time INR 1.08 (0.9-1.15) 1.07 (0.9-1.15) 1.08 (0.9-1.15) 1.11 (0.9-1.15) Activated Partial Thromboplast Time 33.6 SEC (24.5-34.5) 50.1 SEC (24.5-34.5) H 33.6 SEC (24.5-34.5) 58.7 SEC (24.5-34.5) H Test 02/02/25 13:04 Prothrombin Time Pending Prothrombin Time INR Pending Activated Partial Thromboplast Time Pending Urinalysis Test 01/28/25 16:25 Urine Color Colorless (Yellow) Urine Clarity Turbid (Clear) H Urine pH 5.5 (5.0-9.0) Urine Specific [place] 1.014 (1.001-1.035) Urine Protein 1+ (Negative) H Urine Ketones Negative (Negative) Urine Blood 3+ /uL (Negative) H Urine Nitrite 2+ (Negative) H Urine Bilirubin Negative (Negative) Urine Urobilinogen Normal mg/dL (Negative) Urine Leukocyte Esterase 3+ /uL (Negative) Urine RBC 128 /hpf (0 - 4) Urine WBC Clumps Present /hpf (None Seen) Urine Microscopic WBC 127 /HPF (0-5) H Urine Squamous Epithelial Cells None seen /hpf (<5) Urine Bacteria Few /hpf (None Seen) H Urine Mucus Few (None Seen) Urine Yeast (Budding) Few /hpf (None Seen) Urine Glucose Normal mg/dL (Normal) Microbiology Microbiology Date/Time Source Procedure Growth Status 01/31/25 10:30 Nose MRSA Screen - Final Complete 01/28/25 14:28 Blood Blood Culture - Preliminary NO GROWTH AFTER 72 HOURS OF INCUBATION. Resulted Assessment/Plan Assessment/Plan # Right DVT - On Heparin Drip # Right thigh collection vs Osteo - IV Abx - Ortho Cx noted, needs transfer to [facility] # Acute Cystitis - Abx # Vulvuar Cancer - Cont outpatient followup with [facility] [place] # Anemia - FOBT Plan discussed with: Patient My Orders Orders - BETTINA DUARTE MD Procedure Category Date Status Time Vancomycin Per [facility] 02/02/25 In Process Pharmacy Protoc 20:00 Creatinine LAB 02/03/25 Verified 04:00 Vancomycin,Trough LAB 02/04/25 Verified 07:00 * Computerized Table Cutter CONS 02/02/25 Transmitted Consult Oob To Chair [facility] 02/02/25 In Process 12:53 Basic Metabolic Panel LAB 02/03/25 Verified 04:00 Date of Service: Feb 02, 2025 Billing Provider: BETTINA DUARTE MD Common Visit Codes: [id number] INP/OBS CARE(HIGH) BETTINA DUARTE MD Feb 02, 2025 13:27
[2025-02-02] MEDS: LACTULOSE 20Gm/30ML SOLN PO ONE (13:30)
[2025-02-02 13:47] LABS: INR 1.09 (0.9-1.15); Partial Thromboplastin Time 61.5 SEC (24.5-34.5); Prothrombin Time 11.5 sec (9.3-11.8)
--- NOTE | 2025-02-02 14:08 | CONS ---
Pharmacy Clinical Information: HEPARIN DRIP, DVT PROTOCOL @1302 APTT 61.5 - NO BOLUS / NO CHANGE NEXT APTT DRAW SCHEDULED @1900 PER RX PROTOCOL CONFIRMED AND READ BACK WITH GILLIAN GREEN [facility] RESIDENT Feb 02, 2025 14:08
[2025-02-02 19:26] LABS: INR 1.08 (0.9-1.15); Partial Thromboplastin Time 61.5 SEC (24.5-34.5); Prothrombin Time 11.4 sec (9.3-11.8)
== END 2025-02-02 20:55 | disposition short-term general hospital (02) | DRG 300 ==
LOC: EDUNIT# 13:10 → ER 13:10 → EDBD 13:10 → OVERFLOW 19:48 → CENTRAL 22:48 → TELE-CENTR 01-29 20:50
PROVIDERS: ADMIT Internal Medicine; ATTEND Internal Medicine
PROC: 05H933Z Insertion of Infusion Device into Right Brachial Vein, Percutaneous Approach (ICD-10-PCS; principal; 2025-01-28)
PROC: B54MZZA Ultrasonography of Right Upper Extremity Veins, Guidance (ICD-10-PCS; 2025-01-28)
DX: I82.413 Acute embolism and thrombosis of femoral vein, bilateral (principal); M86.8X5 Other osteomyelitis, thigh; N30.00 Acute cystitis without hematuria; I10 Essential (primary) hypertension; D64.9 Anemia, unspecified; J45.909 Unspecified asthma, uncomplicated; C51.9 Malignant neoplasm of vulva, unspecified; Z93.3 Colostomy status; Z93.6 Other artificial openings of urinary tract status
CPT/HCPCS: 36415; 71045; 72193; 80048; 80053; 80202; 81001; 82565; 83605; 83615; 83735; 83880; 85025; 85610; 85730; 86803; 87040; 87081; 87340; 93005; 93971; 96361; 96374; G0378; J0692